=== PATIENT | male | born 1950 | race Caucasian/White ===

== ENCOUNTER → 2019-04-12 | Outpatient (CLI) | payer MEDICARE, OTHER, BC ==
[~2019-04-12] MED LIST: ATEN25TA PO; ATOR40TA59 PO; DOCU-109 PO; HYDR-2145 PO; HYDR-2769 PO; HYDR-3164 PO; IOHEXOL 180 MG/ML 10 ML VIAL. IT ONE; LIDOCAINE 1% Multi-Dose 20 ML VIAL. ID ONE; METH-38 PO; NAPR220T70 PO; OMEG1CAP38 PO; OMEP20TA63 PO; SILD20TA2 PO; TAMS0.4C97 PO
--- NOTE | 2019-04-12 15:38 | KCIC ---
CT lumbar spine exam History: Lumbar radiculopathy, left leg pain for 5 months Technique: CT imaging was performed of the lumbar spine after injection for lumbar myelogram. Multiplanar reconstruction images are submitted. Exposure: One or more of the following individualized dose reduction techniques were utilized for this examination: 1. Automated exposure control 2. Adjustment of the mA and/or kV according to patient size 3. Use of iterative reconstruction technique. Comparison: None Findings: There is mild levoscoliosis centered near L4. Lumbar vertebral body stature is maintained. There is very minimal posterior subluxation L2 relative to L3, very minimal grade 1 anterior spondylolisthesis at L4-5. There is mild degenerative disease greatest at L2-3 and L5-S1. Conus terminates at at the inferior aspect of L1. There is atherosclerotic calcification of the abdominal aorta. T12-L1: There is oqiz-br-oepcqmmc facet degenerative change. Spinal canal and neural foramina are adequate. L1-L2: There is mild buckling of the ligamentum flavum and facet hypertrophic change. Spinal canal and neural foramina are adequate. L2-L3: There is moderate facet degenerative change. There is minimal buckling of the ligamentum flavum. There is minimal disc osteophyte complex superimposed on the posteriorly subluxed L2 vertebral body margin. There is mild indentation upon the ventral thecal sac without significant spinal stenosis. Neural foramina are overall adequate. Disc osteophyte complex is near the extraforaminal left L2 nerve root without significant displacement. L3-L4: There is xati-ob-gxyodpcu facet hypertrophic change. There is minimal buckling of the ligamentum flavum. There is minimal disc osteophyte complex eccentric to the left extraforaminal region, near the extraforaminal left L3 nerve root without significant displacement. Neural foramina are overall adequate. Spinal canal is overall adequate. L4-L5: There is moderate to severe facet degenerative change greater on the right. There is moderate to severe buckling of the ligamentum flavum greater on the right. There is prominence of posterior epidural fat centrally. There is posterior bulge. Combination of findings results in moderate spinal stenosis with somewhat limited preserved subarachnoid space. There is indentation upon the posterior aspect of the thecal sac centrally by epidural lipomatosis. There is lateral recess stenosis bilaterally with degree of contact of the descending L5 nerve roots greater on the left. There is moderate fairly narrowing of the left neural foramen by disc osteophyte complex and facet with limited preserved perineural fat surrounding the exiting left L4 nerve root, disc osteophyte complex also near the extraforaminal left L4 nerve root without displacement. There is mild posterior narrowing of the right neural foramen. L5-S1: There is fairly severe facet degenerative change greater on the left. Spinal canal is adequate. There is negligible bulge. There is no displacement of the descending S1 nerve roots. Facet degenerative change results in mild narrowing of the left neural foramen from posteriorly, right neural foramen adequate. Impression: 1. There is overall moderate spinal stenosis with lateral recess stenosis bilaterally at L4-5, limited preserved subarachnoid space. Stenosis is primarily from facet hypertrophic change and buckling of the ligamentum flavum, also posterior attenuation of the thecal sac centrally by epidural lipomatosis and minimal bulge anteriorly. There is very mild grade 1 anterior spondylolisthesis at L4-5. 2. There is mild degenerative disc disease greatest at L2-3 and L5-S1. 3. There is minimal posterior subluxation L2 relative to L3. There is multilevel facet degenerative change. There is mild lumbar levoscoliosis. 4. There is neural foramina compromise as stated, most notable on the left at L4-5. There are disc osteophyte complexes near the extraforaminal left nerve roots at L2-3, L3-4, L4-5 as described without significant displacement. There is also mild narrowing of the left L5-S1 and right L4-5 neural foramina Electronically signed by: Pedro Blanchard MD (04/12/2019 3:35 PM) [facility]1
--- NOTE | 2019-04-12 15:40 | KCIC ---
Lumbar Myelogram History: Lumbar radiculopathy, left leg pain for 5 months Technique: Patient was informed of the risks of the procedure to include pain, infection, bleeding, seizures, nerve root injury, and allergic reaction to the contrast. All questions were answered. Patient signed a written consent form for a lumbar myelogram. The patient was placed in a prone oblique position on the fluoroscopy table. External site of the lower back was prepped and draped in the usual sterile fashion. Betadine was utilized for cleansing solution. 1% lidocaine was utilized for local anesthesia at the anticipated site of puncture initially on the left at L2-3 interlaminar space. A 19-gauge guiding needle was advanced into the soft tissues. Through the guiding needle, a 25 gauge Arnold needle was advanced although no successful return of cerebral spinal fluid. Additional local anesthesia was then administered on the right at the L3-4 interlaminar space. A 19-gauge guiding needle was advanced into the soft tissues. Through the guiding needle, a 25 gauge Arnold needle was advanced until return of cerebrospinal fluid. Approximately 15 cc of Omnipaque 180 were then injected during fluoroscopic visualization. The needles were removed. Fluoroscopic spot images including standing images with flexion and extension were acquired of the lumbar spine. The patient was then transferred to the CT department for CT examination of the lumbar spine. There were no immediate complications. Fluoroscopy time: 1 min 58 sec, 25 images Findings: There are extradural defects in the lateral recesses bilaterally at L4-5. There is minimal anterior extradural defect at L4-5. Combination of findings results in overall moderate attenuation of the thecal sac. There is multilevel facet degenerative change greater inferiorly of the lumbar spine. There is minimal posterior subluxation L2 relative to L3, somewhat accentuated with flexion and extension. There is negligible posterior subluxation L4 relative to L5 and L3 relative to L4 with extension, minimal grade 1 anterior spondylolisthesis at L4-5 neutral position. There is mild degenerative disc disease L2-3. There is spondylosis greatest L2-3 and L4-5. Impression: 1. There is mild abnormal alignment as stated, most notable minimal posterior subluxation L2 relative to L3. There is mild grade 1 anterior spondylolisthesis at L4-5 in neutral position and minimal posterior subluxation with extension. There are lateral extradural defects bilaterally and also anterior extradural defect at L4-5. There is mild degenerative disc disease greatest at L2-3. Electronically signed by: Pedro Blanchard MD (04/12/2019 3:37 PM) [facility]-KCIC1
== END | disposition home or self-care (01) ==
LOC: KCIC 12:49
PROVIDERS: ATTEND Neurological Surgery
DX: M43.16 Spondylolisthesis, lumbar region (principal); M51.17 Intervertebral disc disorders with radiculopathy, lumbosacral region; M47.25 Other spondylosis with radiculopathy, thoracolumbar region; M48.07 Spinal stenosis, lumbosacral region; I70.8 Atherosclerosis of other arteries; M25.78 Osteophyte, vertebrae; I10 Essential (primary) hypertension
CPT/HCPCS: 72132; 72265; Q9965

== ENCOUNTER → 2019-05-17 | Outpatient (CLI) | payer MEDICARE, OTHER, BC ==
[~2019-05-17] MED LIST changes: -HYDR-2769 PO; -IOHEXOL 180 MG/ML 10 ML VIAL. IT ONE; -LIDOCAINE 1% Multi-Dose 20 ML VIAL. ID ONE; -TAMS0.4C97 PO
[2019-05-17 09:47] LABS: BASO # 0.1 x10^3/uL (0.0-0.2); BASO % 1 % (0-3); EOS # 0.2 x10^3/uL (0.0-0.7); EOS % 4 % (0-3); HEMATOCRIT 44.9 % (39.0-53.0); HEMOGLOBIN 15.4 g/dL (13.0-17.5); LYMPH # 1.9 x10^3/uL (1.0-4.8); LYMPH % 39 % (24-48); MEAN CORPUSCULAR HEMOGLOBIN 32 pg (25-35); MEAN CORPUSCULAR HGB CONC 34 g/dL (31-37); MEAN CORPUSCULAR VOLUME 93 fL (79-100); MONO # 0.5 x10^3/uL (0.0-1.1); MONO % 10 % (0-9); NEUT # 2.2 x10^3/uL (1.8-7.7); NEUT % 46 % (31-73); PLATELET COUNT 170 x10^3/uL (140-400); RED BLOOD COUNT 4.81 x10^6/uL (4.30-5.70); RED CELL DISTRIBUTION WIDTH 13.8 % (11.5-14.5); WHITE BLOOD COUNT 4.9 x10^3/uL (4.0-11.0)
[2019-05-17 10:30] LABS: ALBUMIN 3.9 g/dL (3.4-5.0); ALBUMIN/GLOBULIN RATIO 1.2 (1.0-1.7); CALCIUM 9.2 mg/dL (8.5-10.1); CREATININE 1.1 mg/dL (0.7-1.3); GFR 66.2; POTASSIUM 3.7 mmol/L (3.5-5.1); TOTAL BILIRUBIN 0.9 mg/dL (0.2-1.0); TOTAL PROTEIN 7.1 g/dL (6.4-8.2)
[2019-05-17 10:40] LABS: FREE T4 0.94 ng/dL (0.76-1.46); THYROID STIM HORMONE (TSH) 2.167 uIU/mL (0.358-3.74)
[2019-05-19 12:10] LABS: FREE PSA/PSA RATIO 35.4 % (.); PSA FREE 0.85 ng/mL; PSA TOTAL 2.4 ng/mL (0.0-4.0)
== END | disposition home or self-care (01) ==
LOC: LAB 09:14
PROVIDERS: ATTEND Family Medicine
DX: E78.00 Pure hypercholesterolemia, unspecified (principal); E78.2 Mixed hyperlipidemia; E87.6 Hypokalemia; I10 Essential (primary) hypertension; Z12.5 Encounter for screening for malignant neoplasm of prostate
CPT/HCPCS: 36415; 80053; 80061; 84153; 84154; 84439; 84443; 85025

== ENCOUNTER → 2019-05-17 | Outpatient (CLI) | payer MEDICARE, OTHER, BC ==
--- NOTE | 2019-05-17 15:28 | EKG ---
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
== END | disposition home or self-care (01) ==
LOC: SURGPAT 09:07
PROVIDERS: ATTEND Neurological Surgery
DX: Z01.818 Encounter for other preprocedural examination (principal); M48.062 Spinal stenosis, lumbar region with neurogenic claudication; M54.16 Radiculopathy, lumbar region
CPT/HCPCS: 36415; 87641; 93005

== ENCOUNTER 2019-05-24 06:48 | Day surgery (SDC) | payer MEDICARE, OTHER, BC ==
--- NOTE | 2019-05-21 14:48 | PREOP HP ---
DATE OF SERVICE: 05/24/2019 HISTORY OF PRESENT ILLNESS: The patient is a pleasant 68-year-old who has difficulty with low back pain and pain which radiates into his left buttock, posterior thigh and into his left foot. The problem started on 10/19/2018. He rates his pain currently as an 8/10. The pain is constant. Rest is no significant benefit to him. PAST MEDICAL HISTORY: Hypertension. PAST SURGICAL HISTORY: 1. T and A. 2. Left shoulder. FAMILY HISTORY: Hypertension. SOCIAL HISTORY: Retired. . Smoked more than 10 years ago. Drinks alcohol 1-2 times per week. ALLERGIES: No known drug allergies. CURRENT MEDICATIONS: 1. Diclofenac. 2. Atorvastatin. 3. Atenolol. 4. Hydrochlorothiazide. 5. [place] 3. 6. Sildenafil. REVIEW OF SYSTEMS: A 12-point review of systems was obtained and is noncontributory except for that mentioned above. PHYSICAL EXAMINATION: NEUROSURGERY EXAMINATION: GENERAL APPEARANCE: Alert, pleasant, in no acute distress. HEAD: Normocephalic and atraumatic. SKIN: Warm and dry. MUSCULOSKELETAL: Lumbar paraspinal muscle bulk is normal, restricted range of motion of the lumbar spine, mild to moderate tenderness of the lower lumbar spine with palpation, normal range of motion of the lower extremities bilaterally. EXTREMITIES: No clubbing, cyanosis or edema. NEUROLOGIC: Alert and oriented x 3. Normal recent and remote memory. Strength 5/5 in bilateral lower extremities. Sensory is intact to light touch in lower extremities bilaterally. Reflexes are present and symmetric in bilateral lower extremities. Negative straight leg raising on the right, positive straight leg raising on the left. IMAGING: I reviewed a lumbar myelogram and post-myelogram CT scan. On that study, I do not see significant motion on lumbar flexion and extension x-rays. There is a mild grade 1 anterolisthesis at L4-L5. There is a moderate central canal stenosis at L4-L5, which is combined with buckling of the ligamentum flavum and epidural lipomatosis, results in lateral recess stenosis with contact of a descending L5 nerve root, greater on the left. ASSESSMENT/ PLAN: I believe the problems at L4-L5 are responsible for his lumbar radicular symptoms. The problem has been present and is moderately severe for the last 5 months. My recommendation at this point is that he consider outpatient lumbar microsurgery at this level to see if this one helps him. I discussed with him surgery and the risks. He understands. He would like to proceed. We will make the arrangements. ENOC SANCHEZ MD DR: ROD/dunia JOB#: [id number] / [id number] JANICE
[~2019-05-24] VITALS: Ht 182.9 cm; Wt 104.3 kg
[~2019-05-24 06:48] MED LIST changes: +BACITRACIN 50,000 UNIT in IV NORMAL SALINE 1000ML BAG 1,000 ML IRR ONE; +BUPIVACAINE-EPI 0.5%-1:200000 MPF 30 ML VIAL. INJ ONE; -DOCU-109 PO; -HYDR-3164 PO; -METH-38 PO
[2019-05-24] MEDS ORDERED: fentaNYL PF VIAL 100 MCG/2 ML VIAL IV PRN ×2 (07:00)
[2019-05-24] MEDS ORDERED: MORPHINE SULFATE 2 MG/ML VIAL. IV PRN (07:00)
[2019-05-24] MEDS ORDERED: ONDANSETRON PF 4 MG/2 ML VIAL. IV PRN (07:00)
[2019-05-24] MEDS ORDERED: PROCHLORPERAZINE 10 MG/2 ML VIAL. IV PRN (07:00)
[2019-05-24] MEDS ORDERED: LIDOCAINE 1% PF 2 ML VIAL. ID PRN (07:00)
[2019-05-24] MEDS ORDERED: HYDROmorphone 2 MG/ML VIAL IV PRN (07:00)
[2019-05-24] MEDS ORDERED: IV RINGERS,LACTATED 1000ML 1,000 ML IV SCH (07:00)
[2019-05-24] MEDS ORDERED: REMIFENTANIL 2 MG VIAL. IV ONE (07:06)
[2019-05-24] MEDS ORDERED: LIDOCAINE 2% PF 5 ML VIAL. ONE (07:06)
[2019-05-24] MEDS ORDERED: PROPOFOL 20 ML IV ONE (07:06)
[2019-05-24] MEDS ORDERED: PHENYLEPHRINE 10 MG/ML VIAL. ONE ×2 (07:06→07:07)
[2019-05-24] MEDS ORDERED: PROPOFOL 50 ML IV ONE ×2 (07:06→10:09)
[2019-05-24] MEDS ORDERED: ROCURONIUM 50 MG/5 ML VIAL. ONE (07:06)
[2019-05-24] MEDS ORDERED: DEXAMETHASONE SOD PHOS 20 MG/5 ML VIAL. ONE (07:06)
[2019-05-24] MEDS ORDERED: ONDANSETRON PF 4 MG/2 ML VIAL. ONE (07:06)
[2019-05-24] MEDS ORDERED: 0.9 % SODIUM CHLORIDE 20 ML VIAL. IJ ONE (07:07)
[2019-05-24] MEDS ORDERED: MINERAL OIL/PETROLATUM,WHITE OPHTH OINT 3.5GM TUBE. ONE ×2 (07:07→08:08)
[2019-05-24] MEDS ORDERED: GELATIN SPONGE SIZE 100. ONE (07:13)
[2019-05-24] MEDS ORDERED: THROMBIN TOPICAL 20,000 UNIT SPRAY.SYRN KIT TP ONE (07:14)
[2019-05-24] MEDS ORDERED: KETOROLAC 60 MG/2 ML VIAL. ONE (07:14)
[2019-05-24] MEDS ORDERED: DESFLURANE > 120 MINUTES IH ONE (07:21)
[2019-05-24] MEDS ORDERED: SUCCINYLCHOLINE 200 MG/10 ML VIAL. ONE (07:44)
[2019-05-24] MEDS ORDERED: ceFAZolin 2GM PREMIX 2 GM/50 ML BAG IV ONE (08:00)
[2019-05-24] MEDS ORDERED: fentaNYL PF VIAL 100 MCG/2 ML VIAL ONE (08:17)
[2019-05-24] MEDS ORDERED: DOCU-109 PO (10:50)
[2019-05-24] MEDS ORDERED: HYDR-3164 PO (10:50)
[2019-05-24] MEDS ORDERED: METH-38 PO (10:50)
--- NOTE | 2019-05-24 10:53 | DISCH ---
DISCHARGE INSTRUCTIONS Condition on Discharge Condition on Discharge: Stable Activity After Discharge Activity Instructions for Disc: Activity as tolerated, Avoid exertion Bathing Instructions: Shower-keep dressing dry Lifting Instructions after Dis: No heavy lifting, No pulling or pushing, Do not lift >10 pounds Diet after Discharge Additional Diet Restrictions: resume home diet Wound Incision Care Wound/Incision Care: Ice to area for comfort Other wound/incision instructi: may remove dressing in 48 hours if dry then may shower, no soaking Contacting the DRKatharina after DC Call your doctor for: Concerns you may have Follow-Up Follow up with: Dr. Sanchez's nurse in 2 weeks [phone] ENOC SANCHEZ MD May 24, 2019 10:52
--- NOTE | 2019-05-24 11:07 | OP ---
DATE OF SURGERY: 05/24/2019 PREOPERATIVE DIAGNOSES: Lumbar spinal stenosis/epidural lipomatosis at L4-L5 with left lumbar radiculopathy. POSTOPERATIVE DIAGNOSES: Lumbar spinal stenosis/epidural lipomatosis at L4-L5 with left lumbar radiculopathy. OPERATION PERFORMED: Hemilaminotomy with microdecompression of dura and nerve root and removal of epidural lipomatosis at L4-L5. The operation was done with EMG monitoring, SSEP monitoring, fluoroscopy, microscopic dissection. SURGEON: Saji Sanchez M.D. STORAGE ADMINISTRATOR: EMMANUEL Talbert assisted with the surgery. She assisted with the exposure, the microdecompression, as well as the closure. OPERATIVE INDICATIONS: The patient is a pleasant 69-year-old who developed intractable back and left leg pain, which failed conservative measures. He had above-mentioned findings on imaging studies and I recommended lumbar microdecompressive surgery. I spoke with him about the surgery, the risks, technique and expected postoperative course and he wished to go ahead. DESCRIPTION OF PROCEDURE: Following general endotracheal anesthesia, the patient was positioned prone on the Alli frame. His lumbar region was prepped and draped in standard fashion. RODNEY hose and AV impulse boots were applied for DVT prophylaxis. A microscope was draped. Fluoroscopy was draped and brought into the field. Monitoring was established. Ancef 2 grams was given less than 1 hour prior to initiation of the surgery. Using fluoroscopic guidance, a midline posterior incision was made directly over the L4-L5 interspace, dissected down through skin and subcutaneous tissue, reflected the paraspinal muscles. Paraspinal muscles and placed a Russell microdisc retractor. I brought in the microscope and using high speed air drill, I burred down a generous hemilaminotomy. I grasped ligamentum flavum and peeled this from superior to inferiorly and medial to laterally and performed a generous partial foraminotomy. The dura was markedly compressed and this was relieved by removing the very thick ligamentum flavum and I worked directly to the midline. There was considerable amount of epidural lipomatosis and I reached beneath the midline to the contralateral side and began to tease back and remove this fatty material, which allowed the dura to become further decompressed. I gently retracted the root medially with a micro nerve root retractor. The disc was flat and not significantly bulging as well as firm and no discectomy was warranted. I irrigated copiously with antibiotic solution. I did use bone wax during the operation. I coagulated a couple of large epidural veins and assured myself of perfect hemostasis in the muscle with a bipolar cautery, again through the microscope, and then I closed the wound in layers with absorbable suture after irrigating again. The subcutaneous tissue was closed, the skin was closed with 4-0 subcuticular stitch. The operation went very well and the patient taken to recovery room in excellent condition. I was quite pleased with the surgery. SAJI SANCHEZ MD DR: ROD/dunia JOB#: [id number] / [id number] JANICE
[2019-05-24] MEDS ORDERED: HYDROcodone/APAP 5/325MG 1 TAB TABLET PO ONE (11:15)
[2019-05-24 11:25] VITALS: BP 131/80
--- NOTE | 2019-05-25 16:06 | PATHOLOGY ---
[facility] Accession Number: [id number] . 01 Material submitted: . vertebral column - LUMBAR DECOMPRESSION . 01 Clinical history: . Lumbar stenosis and neurogenic claudication, radiculopathy . 02 Diagnosis: "Lumbar decompression": - Reactive fibrocartilage with associated skeletal muscle. . (MAP:mm; 05/25/2019) [facility] 05/25/2019 1314 Local . 02 Electronically signed: . Jose M Friedman MD, Pathologist NPI- [id number] . 01 Gross description: . Received in formalin labeled "Juan Francisco Norris, lumbar decompression," are several pieces of glistening, fibrous tissue measuring 4.5 x 3.6 x 1.3 cm in aggregate dimensions, containing small fragments of possible bone. The tissue is submitted representatively in cassette A1, following decalcification. (TSD; 05/24/2019) TOB/TOB 05/24/2019 1751 Local . 02 Pathologist provided ICD-10: M99.73, G95.19, M54.16 . 02 CPT . 771587, 983290 Specimen Comment: A courtesy copy of this report has been sent to [phone], [phone] Specimen Comment: [id number] Specimen Comment: Report sent to ,DR AVILA / DR KNOX Performed at: 01 [facility] [address], [place] [id number] MD Rodrigo Garzon MD Phone: [phone] Performed at: 02 [facility] [address], [place] [id number] MD Juan Francisco Montoya MD Phone: [phone]
== END 2019-05-24 12:30 | disposition home or self-care (01) ==
LOC: SURG 06:48
PROVIDERS: ATTEND Neurological Surgery
DX: M54.16 Radiculopathy, lumbar region (principal); M48.061 Spinal stenosis, lumbar region without neurogenic claudication; E88.2 Lipomatosis, not elsewhere classified; I10 Essential (primary) hypertension; E78.00 Pure hypercholesterolemia, unspecified; K21.9 Gastro-esophageal reflux disease without esophagitis; Z98.890 Other specified postprocedural states; Z87.891 Personal history of nicotine dependence; Z72.89 Other problems related to lifestyle
CPT/HCPCS: 63047; 97116; 97162; 97530; J0330; J0696; J1100; J1885; J2001; J2405; J2704; J3010; J3490; J7030; J7120; 76000; 88304; 88311

== ENCOUNTER 2019-05-26 08:53 | Inpatient (IN) | payer MEDICARE, OTHER, BC ==
[~2019-05-26] VITALS: Ht 182.9 cm; Wt 106.7 kg
[~2019-05-26 08:53] MED LIST changes: -BACITRACIN 50,000 UNIT in IV NORMAL SALINE 1000ML BAG 1,000 ML IRR ONE; -BUPIVACAINE-EPI 0.5%-1:200000 MPF 30 ML VIAL. INJ ONE; +DOCU-109 PO; +HYDR-3164 PO; +METH-38 PO
[2019-05-26] MEDS ORDERED: fentaNYL PF VIAL 100 MCG/2 ML VIAL IVP ONE ×2 (09:15→14:00)
--- NOTE | 2019-05-26 09:32 | RAD ---
EXAM: Chest, single view. HISTORY: Syncope. COMPARISON: None. FINDINGS: A frontal view of the chest is obtained. There is suspected lingular and bilateral lower lobe atelectasis or scarring. There is no consolidation, pleural effusion or pneumothorax. The heart is normal in size. IMPRESSION: Suspected lingular and bilateral lower lobe atelectasis or scarring. Electronically signed by: Crissy Cuello MD (05/26/2019 9:29 AM) [place] [id number]
[2019-05-26 09:46] LABS: BASO # 0.2 x10^3/uL (0.0-0.2); BASO % 1 % (0-3); EOS % 0 % (0-3); HEMATOCRIT 41.1 % (39.0-53.0); HEMOGLOBIN 14.4 g/dL (13.0-17.5); LYMPH # 2.3 x10^3/uL (1.0-4.8); LYMPH % 20 % (24-48); MEAN CORPUSCULAR HEMOGLOBIN 33 pg (25-35); MEAN CORPUSCULAR HGB CONC 35 g/dL (31-37); MEAN CORPUSCULAR VOLUME 93 fL (79-100); MONO # 1.2 x10^3/uL (0.0-1.1); MONO % 11 % (0-9); NEUT # 7.8 x10^3/uL (1.8-7.7); NEUT % 67 % (31-73); PLATELET COUNT 183 x10^3/uL (140-400); RED BLOOD COUNT 4.43 x10^6/uL (4.30-5.70); RED CELL DISTRIBUTION WIDTH 14.3 % (11.5-14.5); WHITE BLOOD COUNT 11.5 x10^3/uL (4.0-11.0)
[2019-05-26 10:03] LABS: CREATININE 1.3 mg/dL (0.7-1.3); GFR 54.4; POTASSIUM 3.8 mmol/L (3.5-5.1)
[2019-05-26 10:10] LABS: ALBUMIN 3.5 g/dL (3.4-5.0); MAGNESIUM 1.9 mg/dL (1.8-2.4); TOTAL BILIRUBIN 1.1 mg/dL (0.2-1.0); TOTAL PROTEIN 7.1 g/dL (6.4-8.2)
--- NOTE | 2019-05-26 10:13 | RAD ---
EXAM: Head CT without contrast. HISTORY: Syncope. TECHNIQUE: Computed tomographic images of the head were obtained without contrast. *One or more of the following individualized dose reduction techniques were utilized for this examination: 1. Automated exposure control. 2. Adjustment of the mA and/or kV according to patient size. 3. Use of iterative reconstruction technique. COMPARISON: None. FINDINGS: There is no acute or subacute extra-axial or intraparenchymal hemorrhage. There is no mass effect or midline shift. There is no hydrocephalus. There are areas of decreased attenuation within the cerebral white matter, nonspecific and likely related to chronic small vessel disease. There is cerebral and cerebellar volume loss. There is ethmoid sinus mucosal thickening. There are bilateral hannah bullosa. The orbits are unremarkable. There is minimal fluid within right mastoid air cells. No suspicious calvarial lesion is seen. IMPRESSION: 1. No acute intracranial finding. Note is made that MRI is more sensitive for acute infarction. 2. Nonspecific decreased attenuation within the cerebral white, a finding which can be seen with chronic small vessel disease. 3. Mild cerebral and cerebellar volume loss. Electronically signed by: Crissy Cuello MD (05/26/2019 10:10 AM) [email or web address]
[2019-05-26 10:32] LABS: BILIRUBIN,URINE NEGATIVE (NEG); CLARITY,URINE CLEAR; COLOR,URINE YELLOW; NITRITE,URINE NEGATIVE (NEG); PH,URINE 6.5; PROTEIN,URINE NEGATIVE (NEG-TRACE); UROBILINOGEN,URINE 0.2 mg/dL (0.2 mg/dL)
[2019-05-26 10:39] LABS: HYALINE CASTS, URINE FEW /HPF; SQUAMOUS EPITHELIAL CELL,UR FEW /LPF
[2019-05-26 10:40] LABS: BACTERIA,URINE FEW /HPF (0-FEW)
[2019-05-26 10:42] LABS: RBC,URINE OCC /HPF (0-2)
[2019-05-26] MEDS ORDERED: IV NORMAL SALINE 1000ML BAG 1,000 ML IV ONE ×2 (10:45→15:15)
[2019-05-26] MEDS ORDERED: HYDROmorphone 2 MG/ML VIAL IV ONE (10:45)
--- NOTE | 2019-05-26 10:46 | EKG ---
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
--- NOTE | 2019-05-26 11:07 | PHYS DOC ---
Past Medical History Past Medical History: Hypertension Alcohol Use: Occasionally Drug Use: None Adult General Chief Complaint Chief Complaint: SYNCOPE HPI HPI Patient is a 69 year old male with history of lumbar disc surgery 3 days ago who presents with complaining of passing out. Patient states he feels a coffee for himself this morning without problem and then laid down on day couch and woke up on the ground of his room with an known time of loss of consciousness. Patient denies chest pain, focal neuro deficit, nausea and vomiting before or after syncope and complaining of increasing lower back pain after his syncope and rated his pain 8/10. Patient states he currently taking hydrocodone for his pain without problem. Review of Systems Review of Systems Constitutional: Denies fever or chills [] Eyes: Denies change in visual acuity, redness, or eye pain [] HENT: Denies nasal congestion or sore throat [] Respiratory: Denies cough or shortness of breath [] Cardiovascular: No additional information not addressed in HPI [] GI: Denies abdominal pain, nausea, vomiting, bloody stools or diarrhea [] : Denies dysuria or hematuria [] Musculoskeletal: Denies joint pain, reports back pain [] Integument: Denies rash or skin lesions [] Neurologic: Denies headache, focal weakness or sensory changes [] Endocrine: Denies polyuria or polydipsia [] All other systems were reviewed and found to be within normal limits, except as documented in this note. Current Medications Current Medications Current Medications Medications (Trade) Dose Ordered Sig/Manohar Start Time Stop Time Status Last Admin Dose Admin Fentanyl Citrate (Fentanyl 2ml Vial) 50 mcg 1X ONCE 05/26/19 09:15 05/26/19 09:23 DC 05/26/19 09:42 50 MCG Hydromorphone HCl (Dilaudid) 1 mg 1X ONCE 05/26/19 10:45 05/26/19 10:46 DC 05/26/19 10:48 1 MG Sodium Chloride 1,000 ml @ 1,000 mls/hr 1X ONCE 05/26/19 10:45 05/26/19 11:44 DC 05/26/19 10:49 1,000 MLS/HR Allergies Allergies Allergies Coded Allergies Type Severity Reaction Last Updated Verified No Known Drug Allergies 04/12/19 No Physical Exam Physical Exam Constitutional: Well developed, well nourished, mild distress, non-toxic appearance. [] HENT: Normocephalic, atraumatic. Eyes: PERRLA, EOMI, conjunctiva normal, no discharge. [] Neck: Normal range of motion, no tenderness, supple, no stridor. [] Cardiovascular:Heart rate regular rhythm, no murmur [] Lungs & Thorax: Bilateral breath sounds clear to auscultation [] Abdomen: Bowel sounds normal, soft, no tenderness, no masses, no pulsatile masses. [] Skin: Warm, dry, no erythema, no rash. [] Back: Surgical dressing on lumbar area without sign of infection, no CVA tenderness. [] Extremities: No tenderness, no cyanosis, no clubbing, ROM intact, no edema. [] Neurologic: Alert and oriented X 3, no focal deficits noted. [] Psychologic: Affect normal, judgement normal, mood normal. [] Current Patient Data Vital Signs Vital Signs Date Time Temp Pulse Resp B/P (MAP) Pulse Ox O2 Delivery O2 Flow Rate FiO2 05/26/19 10:48 17 96 Room Air 05/26/19 09:15 98.0 86 147/81 (103) 98.0 Lab Values Laboratory Tests Test 05/26/19 09:40 05/26/19 10:20 White Blood Count 11.5 x10^3/uL (4.0-11.0) H Red Blood Count 4.43 x10^6/uL (4.30-5.70) Hemoglobin 14.4 g/dL (13.0-17.5) Hematocrit 41.1 % (39.0-53.0) Mean Corpuscular Volume 93 fL (79-100) Mean Corpuscular Hemoglobin 33 pg (25-35) Mean Corpuscular Hemoglobin Concent 35 g/dL (31-37) Red Cell Distribution Width 14.3 % (11.5-14.5) Platelet Count 183 x10^3/uL (140-400) Neutrophils (%) (Auto) 67 % (31-73) Lymphocytes (%) (Auto) 20 % (24-48) L Monocytes (%) (Auto) 11 % (0-9) H Eosinophils (%) (Auto) 0 % (0-3) Basophils (%) (Auto) 1 % (0-3) Neutrophils # (Auto) 7.8 x10^3/uL (1.8-7.7) H Lymphocytes # (Auto) 2.3 x10^3/uL (1.0-4.8) Monocytes # (Auto) 1.2 x10^3/uL (0.0-1.1) H Eosinophils # (Auto) 0.0 x10^3/uL (0.0-0.7) Basophils # (Auto) 0.2 x10^3/uL (0.0-0.2) Sodium Level 141 mmol/L (136-145) Potassium Level 3.8 mmol/L (3.5-5.1) Chloride Level 101 mmol/L (98-107) Carbon Dioxide Level 29 mmol/L (21-32) Anion Gap 11 (6-14) Blood Urea Nitrogen 16 mg/dL (8-26) Creatinine 1.3 mg/dL (0.7-1.3) Estimated GFR (Cockcroft-Gault) 54.4 BUN/Creatinine Ratio 12 (6-20) Glucose Level 138 mg/dL (70-99) H Calcium Level 9.0 mg/dL (8.5-10.1) Magnesium Level 1.9 mg/dL (1.8-2.4) Total Bilirubin 1.1 mg/dL (0.2-1.0) H Aspartate Amino Transferase (AST) 23 U/L (15-37) Alanine Aminotransferase (ALT) 19 U/L (16-63) Alkaline Phosphatase 63 U/L (46-116) Creatine Kinase 252 U/L (39-308) Troponin I Quantitative < 0.017 ng/mL (0.000-0.055) Total Protein 7.1 g/dL (6.4-8.2) Albumin 3.5 g/dL (3.4-5.0) Albumin/Globulin Ratio 1.0 (1.0-1.7) Thyroid Stimulating Hormone (TSH) 2.926 uIU/mL (0.358-3.74) Urine Collection Type Unknown Urine Color Yellow Urine Clarity Clear Urine pH 6.5 Urine Specific [place] 1.025 Urine Protein Negative mg/dL (NEG-TRACE) Urine Glucose (UA) Negative mg/dL (NEG) Urine Ketones (Stick) Negative mg/dL (NEG) Urine Blood Negative (NEG) Urine Nitrite Negative (NEG) Urine Bilirubin Negative (NEG) Urine Urobilinogen Dipstick 0.2 mg/dL (0.2 mg/dL) Urine Leukocyte Esterase Negative (NEG) Urine RBC Occ /HPF (0-2) Urine WBC 1-4 /HPF (0-4) Urine Squamous Epithelial Cells Few /LPF Urine Bacteria Few /HPF (0-FEW) Urine Hyaline Casts Few /HPF Urine Mucus Mod /LPF Laboratory Tests 05/26/19 09:40 Laboratory Tests 05/26/19 09:40 EKG EKG EKG interpreted by me. EKG at 0909 showed normal sinus rhythm at rate of 87, poor R-wave progress in anteroseptal leads, no acute ST and T-wave elevation Radiology/Procedures Radiology/Procedures [][place] [address] IMAGING REPORT Signed PATIENT: MCKENZIE BARTH ACCOUNT: [id number] : 1950 LOCATION: ER AGE: 69 SEX: M EXAM STATUS: REG ER ORD. PHYSICIAN: KATHY BELTRAN MD REASON: syncope PROCEDURE: PORTABLE CHEST 1V EXAM: Chest, single view. HISTORY: Syncope. COMPARISON: None. FINDINGS: A frontal view of the chest is obtained. There is suspected lingular and bilateral lower lobe atelectasis or scarring. There is no consolidation, pleural effusion or pneumothorax. The heart is normal in size. IMPRESSION: Suspected lingular and bilateral lower lobe atelectasis or scarring. Electronically signed by: Crissy Singh MD (05/26/2019 9:29 AM) [place] [id number] DICTATED and SIGNED BY: CRISSY SINGH MD DATE: 05/26/[address] [address] IMAGING REPORT Signed PATIENT: MCKENZIE BARTH ACCOUNT: [id number] : 1950 LOCATION: ER AGE: 69 SEX: M EXAM STATUS: REG ER ORD. PHYSICIAN: KATHY BELTRAN MD REASON: syncope THIS AM LOW BACK SURGURY FRIDAY PROCEDURE: CT HEAD WO CONTRAST EXAM: Head CT without contrast. HISTORY: Syncope. TECHNIQUE: Computed tomographic images of the head were obtained without contrast. *One or more of the following individualized dose reduction techniques were utilized for this examination: 1. Automated exposure control. 2. Adjustment of the mA and/or kV according to patient size. 3. Use of iterative reconstruction technique. COMPARISON: None. FINDINGS: There is no acute or subacute extra-axial or intraparenchymal hemorrhage. There is no mass effect or midline shift. There is no hydrocephalus. There are areas of decreased attenuation within the cerebral white matter, nonspecific and likely related to chronic small vessel disease. There is cerebral and cerebellar volume loss. There is ethmoid sinus mucosal thickening. There are bilateral hannah bullosa. The orbits are unremarkable. There is minimal fluid within right mastoid air cells. No suspicious calvarial lesion is seen. IMPRESSION: 1. No acute intracranial finding. Note is made that MRI is more sensitive for acute infarction. 2. Nonspecific decreased attenuation within the cerebral white, a finding which can be seen with chronic small vessel disease. 3. Mild cerebral and cerebellar volume loss. Electronically signed by: Crissy Singh MD (05/26/2019 10:10 AM) [id number] DICTATED and SIGNED BY: CRISSY SINGH MD DATE: 05/26/19 1010 Course & Med Decision Making Course & Med Decision Making Pertinent Labs and Imaging studies reviewed. (See chart for details) Evaluation of patient in ER showed 69-year-old male patient with history of recent back surgery and one episode of syncope today. Patient had unremarkable physical exam without acute neurodeficit and history of syncope. Patient neurosurgeon Dr. Herring was informed at 1102 via his nurse. Patient requiring admission for further evaluation and treatment. Discussed with Dr. Fallon who is in agreement with admission. Discussed findings and plan with patient and family, who acknowledge understanding and agreement. Dragon Disclaimer Dragon Disclaimer This electronic medical record was generated, in whole or in part, using a voice recognition dictation system. Departure Departure Impression: Primary Impression: Syncope Additional Impression: Post-op pain Disposition: 09 ADMITTED INPATIENT Admitting Physician: SUMAYA Condition: IMPROVED Referrals: THEODORE AVILA MD (PCP) Problem Qualifiers Primary Impression: Syncope Syncope type: unspecified Qualified Codes: R55 - Syncope and collapse KOUSHA,KATHY MD May 26, 2019 11:07
[2019-05-26 11:54] VITALS: BP 155/83
--- NOTE | 2019-05-26 12:30 | NUR ---
The patient, MCKENZIE BARTH, 69 y/o, M admitted by RUTH GRIFFIN III, DO, was given written information regarding hospital policies, unit procedures and contact persons. Valuables taken home by emergency contact
[2019-05-26] MEDS ORDERED: ATOR40TA59 PO (12:34)
--- NOTE | 2019-05-26 13:22 | PDOC2 ---
ABI TEE ELECTRICAL INTERN 05/26/19 1321: CARDIAC CONSULT DATE OF CONSULT Date of Consult DATE: 05/26/19 TIME: 13:13 REASON FOR CONSULT Reason for Consult: Syncope with fall REFERRING PHYSICIAN Referring Physician: Vasyl SOURCE Source: Chart review, Patient HISTORY OF PRESENT ILLNESS HISTORY OF PRESENT ILLNESS This is a pleasant 69 yo male admitted for complains of passing out. He had LMD Friday and was doing well post op and actually back pain was well controlled and his LLE pain was gone since surgery. Yesterday he decided to slowly walk to the store and actually ending walking about 200 yards. He tolerated this but in the evening he started having significant low back pain. He was able to go to bed last night and this morning he was trying to prepare some coffee in the kitchen when felt like he was having vertigo with the TV looked like it was spinning. After which he noticed himself looking up on the kitchen table as he was laying on the floor. No apparent fractures. He denied any palpitations, nor any focal neurosymptoms. Denies feeling hot or even feeling lightheaded but he was having significant low back pain at that time. In addition he also just started having abdominal pain, throbbing and thinking this may be related to his lower back. Pain is currently 7-8 in 0-10 pain scale. No n/v/d. Denies any past hx of vertigo, arrhythmia, CAD, VTE and he did tolerate his LMD last Friday. Presently he still having significant low back pain. Denies any past stress test or syncope. PAST MEDICAL HISTORY Cardiovascular: HTN, Hyperlipidemia Pulmonary: No pertinent hx CENTRAL NERVOUS SYSTEM: Other (No pertinent history) GI: GERD, Other (umbilical hernia) Heme/Onc: No pertinent hx Hepatobiliary: No pertinent hx Psych: No pertinent hx Musculoskeletal: low back pain, Osteoarthritis, Other (left shoulder shrapnel) Infectious disease: No pertinent hx ENT: No pertinent hx Renal/: Other (ED) Endocrine: Other (thyroid cysts) Dermatology: No pertinent hx PAST SURGICAL HISTORY Past Surgical History: Arthroscopy (left shoulder), Tonsillectomy, Other (LMD) FAMILY HISTORY Family History: Hypertension SOCIAL HISTORY Smoke: Quit (approx 30 pk yr, quit remotely) ALCOHOL: occassional Drugs: None Lives: Alone CURRENT MEDICATIONS CURRENT MEDICATIONS Current Medications Medications (Trade) Dose Ordered Sig/Manohar Route PRN Reason Start Time Stop Time Status Last Admin Dose Admin Fentanyl Citrate (Fentanyl 2ml Vial) 50 mcg 1X ONCE IVP 05/26/19 09:15 05/26/19 09:23 DC 05/26/19 09:42 Sodium Chloride 1,000 ml @ 1,000 mls/hr 1X ONCE IV 05/26/19 10:45 05/26/19 11:44 DC 05/26/19 10:49 Hydromorphone HCl (Dilaudid) 1 mg 1X ONCE IV 05/26/19 10:45 05/26/19 10:46 DC 05/26/19 10:48 ALLERGIES ALLERGIES: Coded Allergies: No Known Drug Allergies (Unverified , 04/12/19) ROS Review of System 14 point ROS evaluated with pertinent positives noted per HPI PHYSICAL EXAM General: Alert, Oriented X3, Cooperative, No acute distress HEENT: Atraumatic, Mucous membr. moist/pink Lungs: Clear to auscultation, Normal air movement Heart: Regular rate (SR), Normal S1, Normal S2, No murmurs Abdomen: Soft, No tenderness, Other (umbilical hernis, truncal obesity) Extremities: No cyanosis, No edema, Other (2+ bilateral pedal pulses) Skin: No breakdown, No significant lesion, Other (lower back surgical incision intact with telfa) Neuro: Normal speech, Sensation intact Psych/Mental Status: Mental status NL, Mood NL MUSCULOSKELETAL: Osteoarthritic changes both hands VITALS/I&O VITALS/I&O: Vital Signs Date Time Temp Pulse Resp B/P (MAP) Pulse Ox O2 Delivery O2 Flow Rate FiO2 05/26/19 12:36 97 Room Air 05/26/19 11:54 98.6 89 18 155/83 (107) 98.6 LABS Lab: Laboratory Tests Test 05/26/19 09:40 05/26/19 10:20 White Blood Count 11.5 x10^3/uL (4.0-11.0) H Red Blood Count 4.43 x10^6/uL (4.30-5.70) Hemoglobin 14.4 g/dL (13.0-17.5) Hematocrit 41.1 % (39.0-53.0) Mean Corpuscular Volume 93 fL (79-100) Mean Corpuscular Hemoglobin 33 pg (25-35) Mean Corpuscular Hemoglobin Concent 35 g/dL (31-37) Red Cell Distribution Width 14.3 % (11.5-14.5) Platelet Count 183 x10^3/uL (140-400) Neutrophils (%) (Auto) 67 % (31-73) Lymphocytes (%) (Auto) 20 % (24-48) L Monocytes (%) (Auto) 11 % (0-9) H Eosinophils (%) (Auto) 0 % (0-3) Basophils (%) (Auto) 1 % (0-3) Neutrophils # (Auto) 7.8 x10^3/uL (1.8-7.7) H Lymphocytes # (Auto) 2.3 x10^3/uL (1.0-4.8) Monocytes # (Auto) 1.2 x10^3/uL (0.0-1.1) H Eosinophils # (Auto) 0.0 x10^3/uL (0.0-0.7) Basophils # (Auto) 0.2 x10^3/uL (0.0-0.2) Sodium Level 141 mmol/L (136-145) Potassium Level 3.8 mmol/L (3.5-5.1) Chloride Level 101 mmol/L (98-107) Carbon Dioxide Level 29 mmol/L (21-32) Anion Gap 11 (6-14) Blood Urea Nitrogen 16 mg/dL (8-26) Creatinine 1.3 mg/dL (0.7-1.3) Estimated GFR (Cockcroft-Gault) 54.4 BUN/Creatinine Ratio 12 (6-20) Glucose Level 138 mg/dL (70-99) H Calcium Level 9.0 mg/dL (8.5-10.1) Magnesium Level 1.9 mg/dL (1.8-2.4) Total Bilirubin 1.1 mg/dL (0.2-1.0) H Aspartate Amino Transferase (AST) 23 U/L (15-37) Alanine Aminotransferase (ALT) 19 U/L (16-63) Alkaline Phosphatase 63 U/L (46-116) Creatine Kinase 252 U/L (39-308) Troponin I Quantitative < 0.017 ng/mL (0.000-0.055) Total Protein 7.1 g/dL (6.4-8.2) Albumin 3.5 g/dL (3.4-5.0) Albumin/Globulin Ratio 1.0 (1.0-1.7) Urine Collection Type Unknown Urine Color Yellow Urine Clarity Clear Urine pH 6.5 Urine Specific [place] 1.025 Urine Protein Negative mg/dL (NEG-TRACE) Urine Glucose (UA) Negative mg/dL (NEG) Urine Ketones (Stick) Negative mg/dL (NEG) Urine Blood Negative (NEG) Urine Nitrite Negative (NEG) Urine Bilirubin Negative (NEG) Urine Urobilinogen Dipstick 0.2 mg/dL (0.2 mg/dL) Urine Leukocyte Esterase Negative (NEG) Urine RBC Occ /HPF (0-2) Urine WBC 1-4 /HPF (0-4) Urine Squamous Epithelial Cells Few /LPF Urine Bacteria Few /HPF (0-FEW) Urine Hyaline Casts Few /HPF Urine Mucus Mod /LPF Laboratory Tests 05/26/19 09:40 Laboratory Tests 05/26/19 09:40 ASSESSMENT/PLAN ASSESSMENT/PLAN 1. Syncope with fall: no obvious injury. Suspect vasovagal from severe pain. No arrhythmias so far. Negative for CSH 2. Vertigo: occurred prior to syncope 3. Lower back pain/abd pain: S/P LMD POD#2 4. HTN: controlled 5. HLP 6. Hx of Left shoulder shrapnel: hence no MRI 7. Lumbar radiculopathy: Absent since surgery 8. 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 Recommendations 1. Orthostasis readings. TTE and check TSH 2. Monitor rhythm. Fentanyl x1. Analgesic control per PCP 3. CT abd and pelvis and rule out any associated aneurysm/dissection. Lumbar CT if able to lay flat post analgesic. LIV LANZA MD 05/26/19 1627: CARDIAC CONSULT ASSESSMENT/PLAN ASSESSMENT/PLAN Patient seen and examined. Agree with AUTO DRIVER's assessment and plan. Syncope appears to be vasovagal. Telemetry did not show any significant arrhythmia so far. Check orthostatics. Check 2-D echocardiogram to assess LV function and rule out structural abnormalities. Plan for outpatient event monitor. Thank you for your consultation. ABI TEE APRN May 26, 2019 13:21 LIV LANZA MD May 26, 2019 16:27
[2019-05-26] MEDS ORDERED: fentaNYL PF VIAL 100 MCG/2 ML VIAL IM ONE (13:45)
[2019-05-26] MEDS: HYDROcodone/APAP 5/325MG 1 TAB TABLET PO PRN (13:59)
[2019-05-26 14:17] VITALS: BP 139/64
--- NOTE | 2019-05-26 14:31 | PDOC1 ---
History and Physical Date of Admission: Date of Admission DATE: 05/26/19 TIME: 14:29 Chief Complaint: Problems: (1) Syncope (2) Post-op pain (3) Spinal stenosis, lumbar region with neurogenic claudication Chief Complain: Syncope Recent lumbar surgery History of Present Illness: HPI: This is an elderly male who had lumbar surgery Alexis Today he had a syncopal episode I discussed the case with ER physician and the nurse Patient is being admitted we'll consult neurosurgery , cardiology and monitor him on the telemetry floor Past Medical/Surgical History: PMH/PSH: Recent lumbar surgery Allergies: Allergies: Coded Allergies: No Known Drug Allergies (Unverified , 04/12/19) Family History: Family History: Diabetes Social History: Social Hisoty: He does not drink smoke or take drugs Current Medications: Current Medications Current Medications Fentanyl Citrate (Fentanyl 2ml Vial) 50 mcg 1X ONCE IVP Last administered on 05/26/19at 09:42; Start 05/26/19 at 09:15; Stop 05/26/19 at 09:23; Status DC Sodium Chloride 1,000 ml @ 1,000 mls/hr 1X ONCE IV Last administered on 05/26/19at 10:49; Start 05/26/19 at 10:45; Stop 05/26/19 at 11:44; Status DC Hydromorphone HCl (Dilaudid) 1 mg 1X ONCE IV Last administered on 05/26/19at 10:48; Start 05/26/19 at 10:45; Stop 05/26/19 at 10:46; Status DC Acetaminophen/ Hydrocodone Bitart (Lortab 5/325) 1 tab PRN Q4HRS PRN PO PAIN Last administered on 05/26/19at 13:59; Start 05/26/19 at 12:30 Fentanyl Citrate (Fentanyl 2ml Vial) 50 mcg 1X ONCE IM ; Start 05/26/19 at 13:45; Stop 05/26/19 at 13:48; Status DC Fentanyl Citrate (Fentanyl 2ml Vial) 50 mcg 1X ONCE IVP Last administered on 05/26/19at 14:00; Start 05/26/19 at 14:00; Stop 05/26/19 at 14:01; Status DC Active Scripts Active Robaxin-750 (Methocarbamol) 750 Mg Tablet 750 Mg PO TID PRN PRN Colace (Docusate Sodium) 100 Mg Capsule 100 Mg PO BID [place] 5-325 Tablet (Acetaminophen/Hydrocodone Bitart) 1 Each Tablet 1-2 Tab PO Q4-6HRS PRN Reported Atorvastatin Calcium 40 Mg Tablet 1 Tab PO QHS Aleve (Naproxen Sodium) 220 Mg Tablet 220 Mg PO BID Prilosec Otc (Omeprazole Magnesium) 20 Mg Tablet. 20 Mg PO DAILY Atenolol 25 Mg Tablet 25 Mg PO DAILY Sildenafil (Sildenafil Citrate) 20 Mg Tablet 20 Mg PO TID [place] 3 Fish Oil Softgel ([place]-3 Fatty Acids/Fish Oil) 1 Each Capsule.dr 1 Each PO DAILY Hydrochlorothiazide Tablet (Hydrochlorothiazide) 25 Mg Tablet 25 Mg PO DAILY ROS: Review of Systems Review of System REVIEW OF SYSTEMS: GENERAL: Denies weakness SKIN: No bruising, hair changes or rashes. EYES: No blurred, double or loss of vision. NOSE AND THROAT: No history of nosebleeds, hoarseness or sore throat. HEART: No history of palpitations, chest pain or shortness of breath on exertion. LUNGS: Denies cough, hemoptysis, wheezing or shortness of breath. GASTROINTESTINAL: Denies changes in appetite, nausea, vomiting, diarrhea or constipation. GENITOURINARY: No history of frequency, urgency, hesitancy or nocturia. NEUROLOGIC: Denies history of numbness, tingling, tremor or weakness. PSYCHIATRIC: No history of panic, anxiety or depression. ENDOCRINE: No history of heat or cold intolerance, polyuria or polydipsia. EXTREMITIES: Denies muscle weakness, joint pain, pain on walking or stiffness. Physical Exam: Vital Signs: Vital Signs Date Time Temp Pulse Resp B/P (MAP) Pulse Ox O2 Delivery O2 Flow Rate FiO2 05/26/19 14:17 98.0 95 18 139/64 (89) 94 Room Air 98.0 Physcial Exam: GEN.: No apparent distress. Alert and oriented. HEENT: Head is normocephalic, atraumatic NECK: Supple, no JVD LUNGS: Clear to auscultation without rhonchi or wheezing HEART: RRR, S1, S2 present. Peripheral pulses intact ABDOMEN: Soft, nontender. Positive bowel sounds no organomegaly EXTREMITIES: Without any cyanosis, clubbing, or edema. Pedal pulses intact NEUROLOGIC: Normal speech, normal tone. A&O x 3 PSYCHIATRIC: Normal affect, normal mood. Stable SKIN: No ulcerations or rashes VASCULAR: Good capillary refill Labs: Labs: Laboratory Tests Test 05/26/19 09:40 05/26/19 10:20 White Blood Count 11.5 x10^3/uL (4.0-11.0) Red Blood Count 4.43 x10^6/uL (4.30-5.70) Hemoglobin 14.4 g/dL (13.0-17.5) Hematocrit 41.1 % (39.0-53.0) Mean Corpuscular Volume 93 fL (79-100) Mean Corpuscular Hemoglobin 33 pg (25-35) Mean Corpuscular Hemoglobin Concent 35 g/dL (31-37) Red Cell Distribution Width 14.3 % (11.5-14.5) Platelet Count 183 x10^3/uL (140-400) Neutrophils (%) (Auto) 67 % (31-73) Lymphocytes (%) (Auto) 20 % (24-48) Monocytes (%) (Auto) 11 % (0-9) Eosinophils (%) (Auto) 0 % (0-3) Basophils (%) (Auto) 1 % (0-3) Neutrophils # (Auto) 7.8 x10^3/uL (1.8-7.7) Lymphocytes # (Auto) 2.3 x10^3/uL (1.0-4.8) Monocytes # (Auto) 1.2 x10^3/uL (0.0-1.1) Eosinophils # (Auto) 0.0 x10^3/uL (0.0-0.7) Basophils # (Auto) 0.2 x10^3/uL (0.0-0.2) Sodium Level 141 mmol/L (136-145) Potassium Level 3.8 mmol/L (3.5-5.1) Chloride Level 101 mmol/L (98-107) Carbon Dioxide Level 29 mmol/L (21-32) Anion Gap 11 (6-14) Blood Urea Nitrogen 16 mg/dL (8-26) Creatinine 1.3 mg/dL (0.7-1.3) Estimated GFR (Cockcroft-Gault) 54.4 BUN/Creatinine Ratio 12 (6-20) Glucose Level 138 mg/dL (70-99) Calcium Level 9.0 mg/dL (8.5-10.1) Magnesium Level 1.9 mg/dL (1.8-2.4) Total Bilirubin 1.1 mg/dL (0.2-1.0) Aspartate Amino Transf (AST/SGOT) 23 U/L (15-37) Alanine Aminotransferase (ALT/SGPT) 19 U/L (16-63) Alkaline Phosphatase 63 U/L (46-116) Creatine Kinase 252 U/L (39-308) Troponin I Quantitative < 0.017 ng/mL (0.000-0.055) Total Protein 7.1 g/dL (6.4-8.2) Albumin 3.5 g/dL (3.4-5.0) Albumin/Globulin Ratio 1.0 (1.0-1.7) Thyroid Stimulating Hormone (TSH) 2.926 uIU/mL (0.358-3.74) Urine Collection Type Unknown Urine Color Yellow Urine Clarity Clear Urine pH 6.5 Urine Specific [place] 1.025 Urine Protein Negative mg/dL (NEG-TRACE) Urine Glucose (UA) Negative mg/dL (NEG) Urine Ketones (Stick) Negative mg/dL (NEG) Urine Blood Negative (NEG) Urine Nitrite Negative (NEG) Urine Bilirubin Negative (NEG) Urine Urobilinogen Dipstick 0.2 mg/dL (0.2 mg/dL) Urine Leukocyte Esterase Negative (NEG) Urine RBC Occ /HPF (0-2) Urine WBC 1-4 /HPF (0-4) Urine Squamous Epithelial Cells Few /LPF Urine Bacteria Few /HPF (0-FEW) Urine Hyaline Casts Few /HPF Urine Mucus Mod /LPF Laboratory Tests Test 05/26/19 09:40 05/26/19 10:20 White Blood Count 11.5 x10^3/uL (4.0-11.0) Red Blood Count 4.43 x10^6/uL (4.30-5.70) Hemoglobin 14.4 g/dL (13.0-17.5) Hematocrit 41.1 % (39.0-53.0) Mean Corpuscular Volume 93 fL (79-100) Mean Corpuscular Hemoglobin 33 pg (25-35) Mean Corpuscular Hemoglobin Concent 35 g/dL (31-37) Red Cell Distribution Width 14.3 % (11.5-14.5) Platelet Count 183 x10^3/uL (140-400) Neutrophils (%) (Auto) 67 % (31-73) Lymphocytes (%) (Auto) 20 % (24-48) Monocytes (%) (Auto) 11 % (0-9) Eosinophils (%) (Auto) 0 % (0-3) Basophils (%) (Auto) 1 % (0-3) Neutrophils # (Auto) 7.8 x10^3/uL (1.8-7.7) Lymphocytes # (Auto) 2.3 x10^3/uL (1.0-4.8) Monocytes # (Auto) 1.2 x10^3/uL (0.0-1.1) Eosinophils # (Auto) 0.0 x10^3/uL (0.0-0.7) Basophils # (Auto) 0.2 x10^3/uL (0.0-0.2) Sodium Level 141 mmol/L (136-145) Potassium Level 3.8 mmol/L (3.5-5.1) Chloride Level 101 mmol/L (98-107) Carbon Dioxide Level 29 mmol/L (21-32) Anion Gap 11 (6-14) Blood Urea Nitrogen 16 mg/dL (8-26) Creatinine 1.3 mg/dL (0.7-1.3) Estimated GFR (Cockcroft-Gault) 54.4 BUN/Creatinine Ratio 12 (6-20) Glucose Level 138 mg/dL (70-99) Calcium Level 9.0 mg/dL (8.5-10.1) Magnesium Level 1.9 mg/dL (1.8-2.4) Total Bilirubin 1.1 mg/dL (0.2-1.0) Aspartate Amino Transf (AST/SGOT) 23 U/L (15-37) Alanine Aminotransferase (ALT/SGPT) 19 U/L (16-63) Alkaline Phosphatase 63 U/L (46-116) Creatine Kinase 252 U/L (39-308) Troponin I Quantitative < 0.017 ng/mL (0.000-0.055) Total Protein 7.1 g/dL (6.4-8.2) Albumin 3.5 g/dL (3.4-5.0) Albumin/Globulin Ratio 1.0 (1.0-1.7) Thyroid Stimulating Hormone (TSH) 2.926 uIU/mL (0.358-3.74) Urine Collection Type Unknown Urine Color Yellow Urine Clarity Clear Urine pH 6.5 Urine Specific [place] 1.025 Urine Protein Negative mg/dL (NEG-TRACE) Urine Glucose (UA) Negative mg/dL (NEG) Urine Ketones (Stick) Negative mg/dL (NEG) Urine Blood Negative (NEG) Urine Nitrite Negative (NEG) Urine Bilirubin Negative (NEG) Urine Urobilinogen Dipstick 0.2 mg/dL (0.2 mg/dL) Urine Leukocyte Esterase Negative (NEG) Urine RBC Occ /HPF (0-2) Urine WBC 1-4 /HPF (0-4) Urine Squamous Epithelial Cells Few /LPF Urine Bacteria Few /HPF (0-FEW) Urine Hyaline Casts Few /HPF Urine Mucus Mod /LPF Assessment/Plan Assessment/Plan Syncope after recent lumbar surgery Plan Cardiac monitoring Consult Dr. Herring [facility] cardiology Home meds DVT prophylaxis Full code RUTH GRIFFIN III DO May 26, 2019 14:31
[2019-05-26] MEDS ORDERED: CONTRAST GIVEN. MC PRN (15:15)
[2019-05-26] MEDS ORDERED: IOHEXOL 350 MG/ML 100 ML VIAL. IV ONE (15:15)
--- NOTE | 2019-05-26 16:01 | RAD ---
EXAM: CT angiography of the abdomen and pelvis with intravenous contrast; lumbar spine CT without contrast. HISTORY: Pain. TECHNIQUE: Computed tomographic images of the abdomen and pelvis were obtained following the administration of 90 cc Omnipaque 350 intravenous contrast according to angiography protocol. Multiplanar reformatting was performed and 3-dimensional maximum intensity projection images were obtained. Reconstructed images of the lumbar spine were also obtained. *One or more of the following individualized dose reduction techniques were utilized for this examination: 1. Automated exposure control. 2. Adjustment of the mA and/or kV according to patient size. 3. Use of iterative reconstruction technique. COMPARISON: 04/09/2019. FINDINGS: Evaluation of the lower thorax demonstrates coronary artery and aortic atherosclerosis. There is bilateral basilar and posterior dependent atelectasis. There is suspected linear scarring or atelectasis within the lingula and right middle lobe. There is a tiny hiatal hernia. There is hepatic steatosis. There is a 3.1 cm cyst within the left hepatic lobe. There is a 1.0 cm focus of enhancement within the anterior right hepatic lobe at the level of the hepatic dome, likely artifactual or due to slight shunt phenomenon or transient hepatic attenuation difference. No suspicious hepatic lesion is seen. The gallbladder is slightly distended. This is likely due to the preprandial status of the patient. The pancreas, spleen and adrenal glands are unremarkable. There is left greater than right renal cortical scarring. There is no hydronephrosis or suspicious renal lesion. There is a normal-appearing appendix. No abnormally thickened or dilated loop of bowel is seen. There is distal colonic diverticulosis without evidence of diverticulitis. There are calcifications within a prominent prostate. The urinary bladder is unremarkable. There is a fat-containing umbilical hernia. The hernia sac measures 4.7 cm and there is stranding within the herniated fat and adjacent ventral peritoneal fat likely due to a component of fat ischemia. There is no lymphadenopathy. There is abdominal aortic and aortic branch vessel atherosclerosis. There is mild narrowing of the celiac axis origin at the level of the median arcuate ligament, measuring less than 50% and not clearly within limits to suggest median arcuate ligament syndrome. The superior mesenteric artery is widely patent. There aren't accessory bilateral renal arteries. There is suspected 50% narrowing at the origin of the main right renal artery and greater than 75% stenosis of the origin of accessory left renal artery. The inferior mesenteric artery is widely patent. There is calcified plaque within the iliac bifurcation. No hemodynamically significant stenosis, dissection or aneurysm is seen. There are few benign bony islands. There are degenerative changes involving the sacroiliac joints. There is mild retrolisthesis of L1 on L2, L2 on L3 and L3 on L4. There is a mild chronic compression fracture with superior endplate Schmorl's node at T8. There is a minimal compression fracture with superior endplate Schmorl's node at T7. No acute fracture is seen. No suspicious lytic or sclerotic osseous lesion is seen. At L1-L2, there is a disc bulge and anterior predominant endplate remodeling. There is minimal right facet arthropathy. There is no stenosis. At L2-L3, there is a disc bulge and left foraminal to extra foraminal disc osteophyte complex superimposed on endplate remodeling. There is mild retrolisthesis. There is mild left facet arthropathy. There is mild left foraminal stenosis. At L3-L4, there is a disc bulge with left foraminal to extra foraminal disc osteophyte complex superimposed on endplate remodeling. There is mild left facet arthropathy. There is a focus of gas within the left posterior central canal and overlying soft tissues due to recent surgery or instrumentation. There is mild retrolisthesis. There is mild right and moderate left foraminal stenosis. There is mild central canal stenosis. At L4-L5, there is a disc bulge and endplate osteophytosis. There is moderate right facet arthropathy. There are left hemilaminectomy changes. There is fat and a focus of gas within the laminectomy decompression space. There is moderate to severe left greater than right foraminal stenosis. There is persistent moderate central canal stenosis. At L5-S1, there is a disc bulge and endplate remodeling. There is mild left and minimal right facet arthropathy. There is moderate left foraminal stenosis. IMPRESSION: 1. Aortic and aortic branch vessel atherosclerosis, described above. There is no evidence of aneurysm or dissection. 2. Small fat-containing umbilical hernia. There is stranding within the herniated fat and ventral peritoneal fat suggesting a component of fat ischemia. 3. Findings consistent with left hemilaminectomy surgery at L4-L5. There are foci of gas within the posterior back and within the laminectomy decompression space and central canal at the lower lumbar levels due to relative recent surgery. There is persistent foraminal and central canal stenosis at the aforementioned levels. This is further characterized on a CT myelogram dated 04/12/2019. 4. Colonic diverticulosis. 5. Hepatic steatosis and small hepatic cyst. 6. Renal cortical scarring. 7. Tiny hiatal hernia. Electronically signed by: Crissy Cuello MD (05/26/2019 3:57 PM) [facility]
--- NOTE | 2019-05-26 16:12 | PDOC ---
Provider Note Provider Note Patient seen and examined POD #1 S/P lumbar laminectomy L4-5 discharged yesterday from PACU, reports back pain this morning when he got up, sat at the chair but then woke up on the floor neuro intact dressing C,D,I, flat cardiac work up in progress to evaluate for syncopal episode will follow ENOC SANCHEZ MD May 26, 2019 16:12
[2019-05-26] MEDS ORDERED: MORPHINE SULFATE 2 MG/ML VIAL. IM ONE (16:15)
[2019-05-26] MEDS: MORPHINE SULFATE 2 MG/ML VIAL. IV PRN ×2 (16:22→20:32)
[2019-05-26] MEDS ORDERED: METHOCARBAMOL 750 MG TABLET PO PRN (19:15)
[2019-05-26 19:50] VITALS: BP 133/70
[2019-05-26] MEDS: DOCUSATE SODIUM 100 MG CAPSULE. PO SCH (20:30)
[2019-05-26] MEDS: SILDENAFIL CITRATE 20 MG TABLET. PO SCH (20:31)
[2019-05-26] MEDS: ATORVASTATIN CALCIUM 40 MG TABLET. PO SCH (20:31)
[2019-05-26 22:17] VITALS: BP 145/73
[2019-05-27] VITALS (9 sets, daily range): BP systolic 73–153; BP diastolic 48–83
[2019-05-27] MEDS: MORPHINE SULFATE 2 MG/ML VIAL. IV PRN ×7 (00:32→22:23)
[2019-05-27] MEDS: HYDROcodone/APAP 5/325MG 1 TAB TABLET PO PRN ×3 (03:36→22:24)
[2019-05-27] MEDS ORDERED: NAPROXEN 250 MG TABLET PO SCH (08:00)
[2019-05-27] MEDS: SILDENAFIL CITRATE 20 MG TABLET. PO SCH ×3 (09:29→20:17)
[2019-05-27] MEDS: OMEGA-3 FATTY ACIDS/FISH OIL 1,000 MG CAPSULE. PO SCH (09:29)
[2019-05-27] MEDS: hydroCHLOROthiazide 25 MG TABLET PO SCH (09:30)
[2019-05-27] MEDS: PANTOPRAZOLE 40 MG TABLET.DR. PO SCH (09:30)
[2019-05-27] MEDS: DOCUSATE SODIUM 100 MG CAPSULE. PO SCH ×2 (09:30→20:17)
[2019-05-27] MEDS: ATENOLOL 25 MG TABLET. PO SCH (09:31)
--- NOTE | 2019-05-27 09:58 | CARD ---
MR#: [id number] Date of Study: 05/27/2019 Ordering Physician: ABI TEE, Referring Physician: AIB TEE Tech: Radha Sheridan GET APPROVED REPORT EXAM: Two-dimensional and M-mode echocardiogram with Doppler and color Doppler. Other Information Quality : Technically LimitedHR: 89bpm Rhythm : OtherTechnically limited study due to body habitus. INDICATION Syncope 2D DIMENSIONS RVDd3.1 (2.9-3.5cm)Left Atrium(2D)4.3 (1.6-4.0cm) IVSd1.5 (0.7-1.1cm)Aortic Root(2D)3.7 (2.0-3.7cm) LVDd4.6 (3.9-5.9cm)LVOT Diameter2.2 (1.8-2.4cm) PWd1.3 (0.7-1.1cm)LVDs3.3 (2.5-4.0cm) FS (%) 28.7 %SV54.1 ml LVEF(%)55.4 (>50%) M-Mode DIMENSIONS Left Atrium(MM)4.30 (2.5-4.0cm)Aortic Root3.65 (2.2-3.7cm) Aortic Valve AoV Peak Ken.137.3cm/sAoV VTI25.8cm AO Peak GR.7.5mmHgLVOT VTI 16.36cm AO Mean GR.4mmHgAVA (VTI)2.40cm2 Mitral Valve MV E Dbaibplp87.1cm/sMV DECEL [id number] MV A Xkeenmwo742.4cm/sE/A Ratio1.0 MV A Hoqtudeu01xd TDI Lateral E' P. V11.52cm/sMedial E' P. V10.94cm/s E/Lateral E'8.5E/Medial E'9.0 LEFT VENTRICLE The left ventricle is normal size. There is mild concentric left ventricular hypertrophy. The left ve ntricular systolic function is normal. The Ejection Fraction is 55-60%. There is normal LV segmental wall motion. RIGHT VENTRICLE The right ventricle is normal size. There is normal right ventricular wall thickness. The right ventr icular systolic function is normal. ATRIA The left atrium is mildly dilated. The right atrium size is normal. The interatrial septum is intact with no evidence for an atrial septal defect or patent foramen ovale as noted on 2-D or Doppler imagi ng. AORTIC VALVE The aortic valve is probably trileaflet. The aortic valve is not well visualized. Doppler and Color F low revealed no significant aortic regurgitation. There is no significant aortic valvular stenosis. MITRAL VALVE The mitral valve is normal in structure and function. There is no evidence of mitral valve prolapse. There is no mitral valve stenosis. Doppler and Color Flow revealed no mitral valve regurgitation note d. TRICUSPID VALVE The tricuspid valve is normal in structure and function. Doppler and Color Flow revealed no tricuspid valve regurgitation noted. There is no tricuspid valve prolapse or vegetation. There is no tricuspid valve stenosis. PULMONIC VALVE The pulmonic valve is not well visualized. GREAT VESSELS The aortic root is normal in size. The ascending aorta is normal in size. The IVC is normal in size a nd collapses >50% with inspiration. PERICARDIAL EFFUSION There is no evidence of significant pericardial effusion. Critical Notification Critical Value: No <Conclusion> Technically difficult study. The left ventricular systolic function is normal. The Ejection Fraction is 55-60%. There is normal LV segmental wall motion. There is no evidence of significant pericardial effusion. Signed by : Marcelo Farah, Electronically Approved : 05/27/2019 09:58:12
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
--- NOTE | 2019-05-27 13:31 | PDOC ---
ABI TEE LIP CUTTER 05/27/19 1331: CARDIO Progress Notes Date and Time Date of Service 05/27/2019 Time of Evaluation 1310 Subjective Subjective: No Chest Pain, No shortness of breath, No Palpitations Vitals Vitals Vital Signs Date Time Temp Pulse Resp B/P (MAP) Pulse Ox O2 Delivery O2 Flow Rate FiO2 05/27/19 12:36 98 Room Air 05/27/19 11:07 97.9 82 18 132/68 (89) 97.9 Weight Weight [ ] Input and Output Intake and Output Intake and Output 05/27/19 07:00 Intake Total 2200 ml Balance 2200 ml Intake Oral 1250 ml IV Total 950 ml # Voids 6 Physical Exam HEENT: Neck Supple W Full Motion Chest: Symmetric LUNGS: Clear to Auscultation Heart: S1S2, RRR (SR) Abdomen: Soft N/T Extremities: No Calf Tenderness Neurology: alert, oriented, follow commands Assessment Assessment 1. Syncope with fall: no obvious injury. Suspect vasovagal from severe pain. No significant ectopies. Negative for CSH. EF and WM nml. 2. Vertigo: occurred prior to syncope. None further 3. Lower back pain/abd pain: S/P LMD POD#3. Back pain remains. Negative CTA for aneurysm/dissection 4. HTN: controlled 5. HLP 6. Hx of Left shoulder shrapnel: hence no MRI 7. Lumbar radiculopathy: Absent since surgery 8. 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 9. Bilateral EULALIA: incidental finding, moderate lesions 10. Routine sildanefil: reason for use? pt denies pulmonary HTN and he does have ED. Recommendations 1. baby ASA, lipitor, continue home atenolol 2. Will arrange for outpt event monitor. Orthostatic readings 3. BP stable. Encouraged HBPM and minimize use of NSAIDs. Will monitor EULALIA as an outpt 4. Follow up in office in 4 weeks. LIV LANZA MD 05/27/193: CARDIO Progress Notes Assessment Assessment Patient seen and examined. Agree with HOST/HOSTESS's assessment and plan. Syncope most probably vasovagal Tele did not show any arrhythmias 2D echo showed normal LVF Plan event monitor as outpatient ABI TEE APRN May 27, 2019 13:31 LIV LANZA MD May 27, 2019 19:23
[2019-05-27] MEDS ORDERED: BISACODYL 10 MG SUPP.RECT. PR PRN (13:45)
--- NOTE | 2019-05-27 13:53 | NUR ---
SS following for discharge planning. SS reviewed pt chart. Pt is from home and is currently on room air. PT evaluated and recommended acute rehabilitation. SS met with pt and discussed discharge planning and acute rehabilitation. Pt declined inpatient rehabilitation stating that he will not go anywhere that he has to stay. Pt reported being worried about his home at night and reported that he needs to be home. SS discussed options of home healthcare or outpatient therapy. Pt requested that SS revisit with him in the morning. SS will continue to follow for discharge planning.
[2019-05-27] MEDS: MAGNESIUM HYDROXIDE 2,400 MG/30 ML ORAL.SUSP. PO PRN (14:32)
--- NOTE | 2019-05-27 14:49 | PDOC ---
PROGRESS NOTES Subjective Subjective POD #2 up in chair no leg pain, still has back pain, slightly better today Objective Objective Vital Signs Date Time Temp Pulse Resp B/P (MAP) Pulse Ox O2 Delivery O2 Flow Rate FiO2 05/27/19 13:48 82 132/68 05/27/19 12:36 98 Room Air 05/27/19 11:07 97.9 18 97.9 Intake and Output 05/27/19 07:00 Intake Total 2200 ml Balance 2200 ml Intake Oral 1250 ml IV Total 950 ml # Voids 6 Physical Exam General: Alert, Oriented X3, Cooperative MUSCULOSKELETAL: Other (NAIR) Neuro: Normal speech, Other (strength 5/5 in BLE) Assessment Assessment Problems Medical Problems: (1) Post-op pain Status: Acute (2) Syncope Status: Acute Plan Plan of Care ok to dc from my standpoint will need SNF vs Home health PT/ Nursing Comment Review of Relevant I have reviewed the following items jens (where applicable) has been applied. Labs Laboratory Tests Test 05/26/19 09:40 05/26/19 10:20 White Blood Count 11.5 x10^3/uL (4.0-11.0) Red Blood Count 4.43 x10^6/uL (4.30-5.70) Hemoglobin 14.4 g/dL (13.0-17.5) Hematocrit 41.1 % (39.0-53.0) Mean Corpuscular Volume 93 fL (79-100) Mean Corpuscular Hemoglobin 33 pg (25-35) Mean Corpuscular Hemoglobin Concent 35 g/dL (31-37) Red Cell Distribution Width 14.3 % (11.5-14.5) Platelet Count 183 x10^3/uL (140-400) Neutrophils (%) (Auto) 67 % (31-73) Lymphocytes (%) (Auto) 20 % (24-48) Monocytes (%) (Auto) 11 % (0-9) Eosinophils (%) (Auto) 0 % (0-3) Basophils (%) (Auto) 1 % (0-3) Neutrophils # (Auto) 7.8 x10^3/uL (1.8-7.7) Lymphocytes # (Auto) 2.3 x10^3/uL (1.0-4.8) Monocytes # (Auto) 1.2 x10^3/uL (0.0-1.1) Eosinophils # (Auto) 0.0 x10^3/uL (0.0-0.7) Basophils # (Auto) 0.2 x10^3/uL (0.0-0.2) Sodium Level 141 mmol/L (136-145) Potassium Level 3.8 mmol/L (3.5-5.1) Chloride Level 101 mmol/L (98-107) Carbon Dioxide Level 29 mmol/L (21-32) Anion Gap 11 (6-14) Blood Urea Nitrogen 16 mg/dL (8-26) Creatinine 1.3 mg/dL (0.7-1.3) Estimated GFR (Cockcroft-Gault) 54.4 BUN/Creatinine Ratio 12 (6-20) Glucose Level 138 mg/dL (70-99) Calcium Level 9.0 mg/dL (8.5-10.1) Magnesium Level 1.9 mg/dL (1.8-2.4) Total Bilirubin 1.1 mg/dL (0.2-1.0) Aspartate Amino Transf (AST/SGOT) 23 U/L (15-37) Alanine Aminotransferase (ALT/SGPT) 19 U/L (16-63) Alkaline Phosphatase 63 U/L (46-116) Creatine Kinase 252 U/L (39-308) Troponin I Quantitative < 0.017 ng/mL (0.000-0.055) Total Protein 7.1 g/dL (6.4-8.2) Albumin 3.5 g/dL (3.4-5.0) Albumin/Globulin Ratio 1.0 (1.0-1.7) Thyroid Stimulating Hormone (TSH) 2.926 uIU/mL (0.358-3.74) Urine Collection Type Unknown Urine Color Yellow Urine Clarity Clear Urine pH 6.5 Urine Specific [place] 1.025 Urine Protein Negative mg/dL (NEG-TRACE) Urine Glucose (UA) Negative mg/dL (NEG) Urine Ketones (Stick) Negative mg/dL (NEG) Urine Blood Negative (NEG) Urine Nitrite Negative (NEG) Urine Bilirubin Negative (NEG) Urine Urobilinogen Dipstick 0.2 mg/dL (0.2 mg/dL) Urine Leukocyte Esterase Negative (NEG) Urine RBC Occ /HPF (0-2) Urine WBC 1-4 /HPF (0-4) Urine Squamous Epithelial Cells Few /LPF Urine Bacteria Few /HPF (0-FEW) Urine Hyaline Casts Few /HPF Urine Mucus Mod /LPF Medications Current Medications Fentanyl Citrate (Fentanyl 2ml Vial) 50 mcg 1X ONCE IVP Last administered on 05/26/19at 09:42; Start 05/26/19 at 09:15; Stop 05/26/19 at 09:23; Status DC Sodium Chloride 1,000 ml @ 1,000 mls/hr 1X ONCE IV Last administered on 05/26/19at 10:49; Start 05/26/19 at 10:45; Stop 05/26/19 at 11:44; Status DC Hydromorphone HCl (Dilaudid) 1 mg 1X ONCE IV Last administered on 05/26/19at 10:48; Start 05/26/19 at 10:45; Stop 05/26/19 at 10:46; Status DC Acetaminophen/ Hydrocodone Bitart (Lortab 5/325) 1 tab PRN Q4HRS PRN PO PAIN Last administered on 05/27/19at 03:36; Start 05/26/19 at 12:30 Fentanyl Citrate (Fentanyl 2ml Vial) 50 mcg 1X ONCE IM ; Start 05/26/19 at 13:45; Stop 05/26/19 at 13:48; Status DC Fentanyl Citrate (Fentanyl 2ml Vial) 50 mcg 1X ONCE IVP Last administered on 05/26/19at 14:00; Start 05/26/19 at 14:00; Stop 05/26/19 at 14:01; Status DC Sodium Chloride 1,000 ml @ 75 mls/hr 1X ONCE IV Last administered on 05/26/19at 16:09; Start 05/26/19 at 15:15; Stop 05/27/19 at 04:34; Status DC Iohexol (Omnipaque 350 Mg/ml) 90 ml 1X ONCE IV Last administered on 05/26/19at 15:15; Start 05/26/19 at 15:15; Stop 05/26/19 at 15:16; Status DC Info (CONTRAST GIVEN -- Rx MONITORING) 1 each PRN DAILY PRN MC SEE COMMENTS; Start 05/26/19 at 15:15; Stop 05/28/19 at 15:14 Morphine Sulfate (Morphine Sulfate) 2 mg 1X ONCE IM ; Start 05/26/19 at 16:15; Stop 05/26/19 at 16:16; Status UNV Morphine Sulfate (Morphine Sulfate) 2 mg PRN Q2HR PRN IV PAIN Last administered on 05/27/19 12:06; Start 05/26/19 at 16:15 Atenolol (Tenormin) 25 mg DAILY PO Last administered on 05/27/19 09:31; Start 05/27/19 at 09:00 Atorvastatin Calcium (Lipitor) 40 mg QHS PO Last administered on 05/26/19 20:31; Start 05/26/19 at 21:00 Docusate Sodium (Colace) 100 mg BID PO Last administered on 05/27/19 09:30; Start 05/26/19 at 21:00 Hydrochlorothiazide (Hydrodiuril) 25 mg DAILY PO Last administered on 05/27/19 09:30; Start 05/27/19 at 09:00 Methocarbamol (Robaxin) 750 mg TID PRN PRN PO MUSCLE SPASMS Last administered on 05/27/19 14:32; Start 05/26/19 at 19:15 Sildenafil Citrate (Revatio) 20 mg TID PO Last administered on 05/27/19 13:48; Start 05/26/19 at 21:00 Naproxen (Naprosyn) 250 mg BIDWMEALS PO ; Start 05/27/19 at 08:00; Stop 05/27/19 at 13:50; Status DC Fish Oil (Fish Oil) 1,000 mg DAILY PO Last administered on 05/27/19 09:29; Start 05/27/19 at 09:00 Pantoprazole Sodium (Protonix) 40 mg DAILYAC PO Last administered on 05/27/19 09:30; Start 05/27/19 at 07:30 Aspirin (Ecotrin) 81 mg DAILYWBKFT PO ; Start 05/28/19 at 08:00 Bisacodyl (Dulcolax Tab) 10 mg DAILY PO ; Start 05/28/19 at 09:00 Bisacodyl (Dulcolax Supp) 10 mg PRN DAILY PRN [place] CONSTIPATION; Start 05/27/19 at 13:45 Magnesium Hydroxide (Milk Of Magnesia) 2,400 mg PRN DAILY PRN PO CONSTIPATION Last administered on 11/7/19at 14:32; Start 05/27/19 at 13:45 Active Scripts Active Robaxin-750 (Methocarbamol) 750 Mg Tablet 750 Mg PO TID PRN PRN Colace (Docusate Sodium) 100 Mg Capsule 100 Mg PO BID [place] 5-325 Tablet (Acetaminophen/Hydrocodone Bitart) 1 Each Tablet 1-2 Tab PO Q4-6HRS PRN Reported Atorvastatin Calcium 40 Mg Tablet 1 Tab PO QHS Aleve (Naproxen Sodium) 220 Mg Tablet 220 Mg PO BID Prilosec Otc (Omeprazole Magnesium) 20 Mg Tablet. 20 Mg PO DAILY Atenolol 25 Mg Tablet 25 Mg PO DAILY Sildenafil (Sildenafil Citrate) 20 Mg Tablet 20 Mg PO TID [place] 3 Fish Oil Softgel ([place]-3 Fatty Acids/Fish Oil) 1 Each Capsule. 1 Each PO DAILY Hydrochlorothiazide Tablet (Hydrochlorothiazide) 25 Mg Tablet 25 Mg PO DAILY Vitals/I & O Vital Sign - Last 24 Hours 05/26/19 05/26/19 05/26/19 05/26/19 15:07 16:22 16:53 19:40 Pulse Ox 94 94 94 O2 Delivery Room Air Room Air Room Air Room Air 05/26/19 05/26/19 05/26/19 05/26/19 19:50 20:31 20:32 21:02 Temp 98.0 98.0 Pulse 104 104 Resp 18 B/P (MAP) 133/70 (91) 133/70 Pulse Ox 97 97 97 O2 Delivery Room Air Room Air Room Air 05/26/19 05/27/19 05/27/19 05/27/19 22:17 00:32 01:02 03:02 Temp 98.9 97.5 98.9 97.5 Pulse 102 110 Resp 18 18 B/P (MAP) 145/73 (97) 106/58 (74) Pulse Ox 97 96 O2 Delivery Room Air Room Air Room Air Room Air 05/27/19 05/27/19 05/27/19 05/27/19 03:36 04:09 04:36 04:36 O2 Delivery Room Air Room Air Room Air Room Air 05/27/19 05/27/19 05/27/19 05/27/19 07:00 08:00 09:29 09:31 Temp 98.1 98.1 Pulse 85 85 85 Resp 18 B/P (MAP) 147/83 (104) 147/83 147/83 Pulse Ox 96 O2 Delivery Room Air Room Air 05/27/19 05/27/19 05/27/19 05/27/19 09:36 10:06 11:07 12:06 Temp 97.9 97.9 Pulse 82 Resp 18 B/P (MAP) 132/68 (89) Pulse Ox 96 98 98 98 O2 Delivery Room Air Room Air Room Air Room Air 05/27/19 05/27/19 12:36 13:48 Pulse 82 B/P (MAP) 132/68 Pulse Ox 98 O2 Delivery Room Air Intake and Output 05/26/19 05/26/19 05/27/19 15:00 23:00 07:00 Intake Total 0 ml 2200 ml Balance 0 ml 2200 ml ENOC SANCHEZ MD May 27, 2019 14:49
--- NOTE | 2019-05-27 14:59 | NUR ---
Patient voided 120ml of urine and post residual of 620ml obtained. Awaiting Primary order.
--- NOTE | 2019-05-27 15:13 | PDOC ---
PULMONARY PROGRESS NOTES Vitals Vital Signs Date Time Temp Pulse Resp B/P (MAP) Pulse Ox O2 Delivery O2 Flow Rate FiO2 05/27/19 13:48 82 132/68 05/27/19 12:36 98 Room Air 05/27/19 11:07 97.9 18 97.9 Labs Laboratory Tests Test 05/26/19 09:40 05/26/19 10:20 White Blood Count 11.5 x10^3/uL (4.0-11.0) Red Blood Count 4.43 x10^6/uL (4.30-5.70) Hemoglobin 14.4 g/dL (13.0-17.5) Hematocrit 41.1 % (39.0-53.0) Mean Corpuscular Volume 93 fL (79-100) Mean Corpuscular Hemoglobin 33 pg (25-35) Mean Corpuscular Hemoglobin Concent 35 g/dL (31-37) Red Cell Distribution Width 14.3 % (11.5-14.5) Platelet Count 183 x10^3/uL (140-400) Neutrophils (%) (Auto) 67 % (31-73) Lymphocytes (%) (Auto) 20 % (24-48) Monocytes (%) (Auto) 11 % (0-9) Eosinophils (%) (Auto) 0 % (0-3) Basophils (%) (Auto) 1 % (0-3) Neutrophils # (Auto) 7.8 x10^3/uL (1.8-7.7) Lymphocytes # (Auto) 2.3 x10^3/uL (1.0-4.8) Monocytes # (Auto) 1.2 x10^3/uL (0.0-1.1) Eosinophils # (Auto) 0.0 x10^3/uL (0.0-0.7) Basophils # (Auto) 0.2 x10^3/uL (0.0-0.2) Sodium Level 141 mmol/L (136-145) Potassium Level 3.8 mmol/L (3.5-5.1) Chloride Level 101 mmol/L (98-107) Carbon Dioxide Level 29 mmol/L (21-32) Anion Gap 11 (6-14) Blood Urea Nitrogen 16 mg/dL (8-26) Creatinine 1.3 mg/dL (0.7-1.3) Estimated GFR (Cockcroft-Gault) 54.4 BUN/Creatinine Ratio 12 (6-20) Glucose Level 138 mg/dL (70-99) Calcium Level 9.0 mg/dL (8.5-10.1) Magnesium Level 1.9 mg/dL (1.8-2.4) Total Bilirubin 1.1 mg/dL (0.2-1.0) Aspartate Amino Transf (AST/SGOT) 23 U/L (15-37) Alanine Aminotransferase (ALT/SGPT) 19 U/L (16-63) Alkaline Phosphatase 63 U/L (46-116) Creatine Kinase 252 U/L (39-308) Troponin I Quantitative < 0.017 ng/mL (0.000-0.055) Total Protein 7.1 g/dL (6.4-8.2) Albumin 3.5 g/dL (3.4-5.0) Albumin/Globulin Ratio 1.0 (1.0-1.7) Thyroid Stimulating Hormone (TSH) 2.926 uIU/mL (0.358-3.74) Urine Collection Type Unknown Urine Color Yellow Urine Clarity Clear Urine pH 6.5 Urine Specific [place] 1.025 Urine Protein Negative mg/dL (NEG-TRACE) Urine Glucose (UA) Negative mg/dL (NEG) Urine Ketones (Stick) Negative mg/dL (NEG) Urine Blood Negative (NEG) Urine Nitrite Negative (NEG) Urine Bilirubin Negative (NEG) Urine Urobilinogen Dipstick 0.2 mg/dL (0.2 mg/dL) Urine Leukocyte Esterase Negative (NEG) Urine RBC Occ /HPF (0-2) Urine WBC 1-4 /HPF (0-4) Urine Squamous Epithelial Cells Few /LPF Urine Bacteria Few /HPF (0-FEW) Urine Hyaline Casts Few /HPF Urine Mucus Mod /LPF Medications Active Scripts Medications Dose Route/Sig Max Daily Dose Days Date Category Atorvastatin Calcium 40 Mg Tablet 1 Tab PO QHS 05/26/19 Reported Robaxin-750 (Methocarbamol) 750 Mg Tablet 750 Mg PO TID PRN PRN 05/24/19 Rx Colace (Docusate Sodium) 100 Mg Capsule 100 Mg PO BID 05/24/19 Rx [place] 5-325 Tablet (Acetaminophen/Hydrocodone Bitart) 1 Each Tablet 1-2 Tab PO Q4-6HRS PRN 05/24/19 Rx Aleve (Naproxen Sodium) 220 Mg Tablet 220 Mg PO BID 05/14/19 Reported Prilosec Otc (Omeprazole Magnesium) 20 Mg Tablet.dr 20 Mg PO DAILY 05/14/19 Reported Atenolol 25 Mg Tablet 25 Mg PO DAILY 05/14/19 Reported Sildenafil (Sildenafil Citrate) 20 Mg Tablet 20 Mg PO TID 04/12/19 Reported [place] 3 Fish Oil Softgel ([place]-3 Fatty Acids/Fish Oil) 1 Each Capsule.dr 1 Each PO DAILY 04/12/19 Reported Hydrochlorothiazide Tablet (Hydrochlorothiazide) 25 Mg Tablet 25 Mg PO DAILY 04/12/19 Reported Impression . NOTE DICTATED OK TO D/C IN AM ATLECTASIS SEE ORDERS THANKS LOLA FLETCHER MD May 27, 2019 15:13
[2019-05-27] MEDS ORDERED: ALBUTEROL SULFATE 2.5 MG/3 ML NEBU. NEB PRN (15:15)
--- NOTE | 2019-05-27 16:10 | NUR ---
Patient post residual is 700ml. Pt refused urinary catheterization wants to continue to try to void. aware.
[2019-05-27] MEDS: ATORVASTATIN CALCIUM 40 MG TABLET. PO SCH (20:17)
--- NOTE | 2019-05-27 21:02 | CONS ---
DATE OF CONSULTATION: 05/27/2019 ATTENDING PHYSICIAN: Suellen Fallon DO REASON FOR CONSULTATION: The patient was seen in pulmonary consultation at the request of Dr. Fallon for abnormal x-ray. HISTORY OF PRESENT ILLNESS: The patient is a 69-year-old who came in with a syncopal episode. The patient is postop day #2 from laminectomy. He had surgery by Dr. Farias. He presented with a syncopal episode. He was not short of air. No acute onset of shortness of air associated with syncope. No productive cough. Prior to his surgery, he was cutting grass without difficulty. He did smoke, but quit in 1976. He does not have a diagnosis of COPD. His x-ray reveals some atelectasis. PAST MEDICAL HISTORY: Otherwise remarkable for recent laminectomy. He has a history of hypertension, hyperlipidemia, left shoulder surgery, osteoarthritis. PAST SURGICAL HISTORY: Previous shoulder surgery, tonsillectomy, and recent laminectomy. ALLERGIES: No known drug allergies. SOCIAL HISTORY: He quit tobacco in 1976. FAMILY HISTORY: No family history of lung disorders. REVIEW OF SYSTEMS: As indicated above, otherwise, a 10-point system was reviewed and negative. CURRENT MEDICATIONS: List was reviewed. PHYSICAL EXAMINATION: GENERAL: The patient was in no respiratory distress. VITAL SIGNS: Currently on room air saturation greater than 92%. HEENT: Eyes, the sclerae were nonicteric. NECK: Jugular venous distention was not elevated. No lymphadenopathy. CHEST: Full expansion. LUNGS: Adequate air flow with no wheezes. CARDIOVASCULAR: Regular rate and rhythm with S1, S2, no S3. ABDOMEN: Soft, nontender, nondistended. EXTREMITIES: No clubbing, cyanosis or edema. LABORATORY DATA: Chest x-ray reviewed with some atelectasis. IMPRESSION: 1. Abnormal x-ray compatible with expected atelectasis after hemilaminectomy with decompression of the dura and nerve root at L4 and L5. 2. Syncopal episode, suspect vasovagal. 3. Hypertension. 4. History of tobacco, quit in 1976. PLAN: 1. Recommend Incentive spirometry. 2. Nebulized treatment p.r.n. 3. Follow Cardiology input. 4. Follow Neurosurgery input. From my standpoint of view, the patient is okay to discharge at any point. I do appreciate the privilege in sharing in the patient's care. LOLA FLETCHER MD DR: Hill JOB#: [id number] / [id number]
[2019-05-28 02:08] VITALS: BP 107/60
[2019-05-28] MEDS: MORPHINE SULFATE 2 MG/ML VIAL. IV PRN ×3 (03:21→11:23)
[2019-05-28 05:23] LABS: BASO % 0 % (0-3); EOS # 0.1 x10^3/uL (0.0-0.7); EOS % 2 % (0-3); HEMATOCRIT 39.5 % (39.0-53.0); HEMOGLOBIN 13.8 g/dL (13.0-17.5); LYMPH # 1.9 x10^3/uL (1.0-4.8); LYMPH % 28 % (24-48); MEAN CORPUSCULAR HEMOGLOBIN 33 pg (25-35); MEAN CORPUSCULAR HGB CONC 35 g/dL (31-37); MEAN CORPUSCULAR VOLUME 93 fL (79-100); MONO # 0.7 x10^3/uL (0.0-1.1); MONO % 11 % (0-9); NEUT # 3.9 x10^3/uL (1.8-7.7); NEUT % 59 % (31-73); PLATELET COUNT 163 x10^3/uL (140-400); RED BLOOD COUNT 4.24 x10^6/uL (4.30-5.70); RED CELL DISTRIBUTION WIDTH 14.3 % (11.5-14.5); WHITE BLOOD COUNT 6.7 x10^3/uL (4.0-11.0)
[2019-05-28 05:41] LABS: ALBUMIN/GLOBULIN RATIO 0.8 (1.0-1.7); CALCIUM 8.8 mg/dL (8.5-10.1); CREATININE 1.1 mg/dL (0.7-1.3); POTASSIUM 3.3 mmol/L (3.5-5.1); TOTAL BILIRUBIN 1.4 mg/dL (0.2-1.0); TOTAL PROTEIN 6.7 g/dL (6.4-8.2)
[2019-05-28 06:51] VITALS: BP 131/71
[2019-05-28] MEDS: MAGNESIUM HYDROXIDE 2,400 MG/30 ML ORAL.SUSP. PO PRN (07:41)
[2019-05-28] MEDS: PANTOPRAZOLE 40 MG TABLET.DR. PO SCH (07:41)
[2019-05-28] MEDS ORDERED: ASPIRIN ENTERIC COATED 81 MG TABLET.DR. PO SCH (08:00)
--- NOTE | 2019-05-28 08:21 | PDOC ---
PULMONARY PROGRESS NOTES Subjective PT NOT MORE SOA IS PULLS 4 LITERS NO INCREASE COUGH Vitals Vital Signs Date Time Temp Pulse Resp B/P (MAP) Pulse Ox O2 Delivery O2 Flow Rate FiO2 05/28/19 06:51 98.8 80 18 131/71 (91) 94 Room Air 98.8 ROS: No Nausea, No Chest Pain, No Abdominal Pain, No Increase Cough General: Alert Lungs: Clear Cardiovascular: S1, S2 Abdomen: Soft, Non-tender Neuro Exam: Alert Extremities: No Edema Skin: Warm Labs Laboratory Tests Test 05/26/19 09:40 05/26/19 10:20 05/28/19 05:00 White Blood Count 11.5 x10^3/uL (4.0-11.0) 6.7 x10^3/uL (4.0-11.0) Red Blood Count 4.43 x10^6/uL (4.30-5.70) 4.24 x10^6/uL (4.30-5.70) Hemoglobin 14.4 g/dL (13.0-17.5) 13.8 g/dL (13.0-17.5) Hematocrit 41.1 % (39.0-53.0) 39.5 % (39.0-53.0) Mean Corpuscular Volume 93 fL (79-100) 93 fL (79-100) Mean Corpuscular Hemoglobin 33 pg (25-35) 33 pg (25-35) Mean Corpuscular Hemoglobin Concent 35 g/dL (31-37) 35 g/dL (31-37) Red Cell Distribution Width 14.3 % (11.5-14.5) 14.3 % (11.5-14.5) Platelet Count 183 x10^3/uL (140-400) 163 x10^3/uL (140-400) Neutrophils (%) (Auto) 67 % (31-73) 59 % (31-73) Lymphocytes (%) (Auto) 20 % (24-48) 28 % (24-48) Monocytes (%) (Auto) 11 % (0-9) 11 % (0-9) Eosinophils (%) (Auto) 0 % (0-3) 2 % (0-3) Basophils (%) (Auto) 1 % (0-3) 0 % (0-3) Neutrophils # (Auto) 7.8 x10^3/uL (1.8-7.7) 3.9 x10^3/uL (1.8-7.7) Lymphocytes # (Auto) 2.3 x10^3/uL (1.0-4.8) 1.9 x10^3/uL (1.0-4.8) Monocytes # (Auto) 1.2 x10^3/uL (0.0-1.1) 0.7 x10^3/uL (0.0-1.1) Eosinophils # (Auto) 0.0 x10^3/uL (0.0-0.7) 0.1 x10^3/uL (0.0-0.7) Basophils # (Auto) 0.2 x10^3/uL (0.0-0.2) 0.0 x10^3/uL (0.0-0.2) Sodium Level 141 mmol/L (136-145) 141 mmol/L (136-145) Potassium Level 3.8 mmol/L (3.5-5.1) 3.3 mmol/L (3.5-5.1) Chloride Level 101 mmol/L (98-107) 104 mmol/L (98-107) Carbon Dioxide Level 29 mmol/L (21-32) 26 mmol/L (21-32) Anion Gap 11 (6-14) 11 (6-14) Blood Urea Nitrogen 16 mg/dL (8-26) 19 mg/dL (8-26) Creatinine 1.3 mg/dL (0.7-1.3) 1.1 mg/dL (0.7-1.3) Estimated GFR (Cockcroft-Gault) 54.4 66.0 BUN/Creatinine Ratio 12 (6-20) 17 (6-20) Glucose Level 138 mg/dL (70-99) 124 mg/dL (70-99) Calcium Level 9.0 mg/dL (8.5-10.1) 8.8 mg/dL (8.5-10.1) Magnesium Level 1.9 mg/dL (1.8-2.4) Total Bilirubin 1.1 mg/dL (0.2-1.0) 1.4 mg/dL (0.2-1.0) Aspartate Amino Transf (AST/SGOT) 23 U/L (15-37) 18 U/L (15-37) Alanine Aminotransferase (ALT/SGPT) 19 U/L (16-63) 16 U/L (16-63) Alkaline Phosphatase 63 U/L (46-116) 56 U/L (46-116) Creatine Kinase 252 U/L (39-308) Troponin I Quantitative < 0.017 ng/mL (0.000-0.055) Total Protein 7.1 g/dL (6.4-8.2) 6.7 g/dL (6.4-8.2) Albumin 3.5 g/dL (3.4-5.0) 3.0 g/dL (3.4-5.0) Albumin/Globulin Ratio 1.0 (1.0-1.7) 0.8 (1.0-1.7) Thyroid Stimulating Hormone (TSH) 2.926 uIU/mL (0.358-3.74) Urine Collection Type Unknown Urine Color Yellow Urine Clarity Clear Urine pH 6.5 Urine Specific [place] 1.025 Urine Protein Negative mg/dL (NEG-TRACE) Urine Glucose (UA) Negative mg/dL (NEG) Urine Ketones (Stick) Negative mg/dL (NEG) Urine Blood Negative (NEG) Urine Nitrite Negative (NEG) Urine Bilirubin Negative (NEG) Urine Urobilinogen Dipstick 0.2 mg/dL (0.2 mg/dL) Urine Leukocyte Esterase Negative (NEG) Urine RBC Occ /HPF (0-2) Urine WBC 1-4 /HPF (0-4) Urine Squamous Epithelial Cells Few /LPF Urine Bacteria Few /HPF (0-FEW) Urine Hyaline Casts Few /HPF Urine Mucus Mod /LPF Laboratory Tests Test 05/28/19 05:00 White Blood Count 6.7 x10^3/uL (4.0-11.0) Red Blood Count 4.24 x10^6/uL (4.30-5.70) Hemoglobin 13.8 g/dL (13.0-17.5) Hematocrit 39.5 % (39.0-53.0) Mean Corpuscular Volume 93 fL (79-100) Mean Corpuscular Hemoglobin 33 pg (25-35) Mean Corpuscular Hemoglobin Concent 35 g/dL (31-37) Red Cell Distribution Width 14.3 % (11.5-14.5) Platelet Count 163 x10^3/uL (140-400) Neutrophils (%) (Auto) 59 % (31-73) Lymphocytes (%) (Auto) 28 % (24-48) Monocytes (%) (Auto) 11 % (0-9) Eosinophils (%) (Auto) 2 % (0-3) Basophils (%) (Auto) 0 % (0-3) Neutrophils # (Auto) 3.9 x10^3/uL (1.8-7.7) Lymphocytes # (Auto) 1.9 x10^3/uL (1.0-4.8) Monocytes # (Auto) 0.7 x10^3/uL (0.0-1.1) Eosinophils # (Auto) 0.1 x10^3/uL (0.0-0.7) Basophils # (Auto) 0.0 x10^3/uL (0.0-0.2) Sodium Level 141 mmol/L (136-145) Potassium Level 3.3 mmol/L (3.5-5.1) Chloride Level 104 mmol/L (98-107) Carbon Dioxide Level 26 mmol/L (21-32) Anion Gap 11 (6-14) Blood Urea Nitrogen 19 mg/dL (8-26) Creatinine 1.1 mg/dL (0.7-1.3) Estimated GFR (Cockcroft-Gault) 66.0 BUN/Creatinine Ratio 17 (6-20) Glucose Level 124 mg/dL (70-99) Calcium Level 8.8 mg/dL (8.5-10.1) Total Bilirubin 1.4 mg/dL (0.2-1.0) Aspartate Amino Transf (AST/SGOT) 18 U/L (15-37) Alanine Aminotransferase (ALT/SGPT) 16 U/L (16-63) Alkaline Phosphatase 56 U/L (46-116) Total Protein 6.7 g/dL (6.4-8.2) Albumin 3.0 g/dL (3.4-5.0) Albumin/Globulin Ratio 0.8 (1.0-1.7) Medications Active Scripts Medications Dose Route/Sig Max Daily Dose Days Date Category Atorvastatin Calcium 40 Mg Tablet 1 Tab PO QHS 05/26/19 Reported Robaxin-750 (Methocarbamol) 750 Mg Tablet 750 Mg PO TID PRN PRN 05/24/19 Rx Colace (Docusate Sodium) 100 Mg Capsule 100 Mg PO BID 05/24/19 Rx [place] 5-325 Tablet (Acetaminophen/Hydrocodone Bitart) 1 Each Tablet 1-2 Tab PO Q4-6HRS PRN 05/24/19 Rx Aleve (Naproxen Sodium) 220 Mg Tablet 220 Mg PO BID 05/14/19 Reported Prilosec Otc (Omeprazole Magnesium) 20 Mg Tablet. 20 Mg PO DAILY 05/14/19 Reported Atenolol 25 Mg Tablet 25 Mg PO DAILY 05/14/19 Reported Sildenafil (Sildenafil Citrate) 20 Mg Tablet 20 Mg PO TID 04/12/19 Reported [place] 3 Fish Oil Softgel ([place]-3 Fatty Acids/Fish Oil) 1 Each Capsule.dr 1 Each PO DAILY 04/12/19 Reported Hydrochlorothiazide Tablet (Hydrochlorothiazide) 25 Mg Tablet 25 Mg PO DAILY 04/12/19 Reported Impression . IMPRESSION: 1. Abnormal x-ray compatible with expected atelectasis after hemilaminectomy with decompression of the dura and nerve root at L4 and L5. 2. Syncopal episode, suspect vasovagal. 3. Hypertension. 4. History of tobacco, quit in 1976. Plan . WILL CONTINUE SUPPORT OK TO TRANSFER OR D/C FROM MY STANDPOINT FOLLOW UP IN OFFICE NEEDED 05/27 NOTE 1. Recommend Incentive spirometry. 2. Nebulized treatment p.r.n. 3. Follow Cardiology input. 4. Follow Neurosurgery input. LOLA FLETCHER MD May 28, 2019 08:21
[2019-05-28] MEDS: ATENOLOL 25 MG TABLET. PO SCH (08:29)
[2019-05-28] MEDS: DOCUSATE SODIUM 100 MG CAPSULE. PO SCH (08:29)
[2019-05-28] MEDS: SILDENAFIL CITRATE 20 MG TABLET. PO SCH ×2 (08:29→15:04)
[2019-05-28] MEDS: hydroCHLOROthiazide 25 MG TABLET PO SCH (08:29)
[2019-05-28] MEDS: OMEGA-3 FATTY ACIDS/FISH OIL 1,000 MG CAPSULE. PO SCH (08:29)
[2019-05-28] MEDS: HYDROcodone/APAP 5/325MG 1 TAB TABLET PO PRN (08:32)
[2019-05-28] MEDS ORDERED: BISACODYL 5 MG TABLET.DR. PO SCH (09:00)
[2019-05-28 10:12] VITALS: BP 123/69
[2019-05-28] MEDS ORDERED: MAGNESIUM CITRATE 296 ML SOLUTION. PO PRN (10:15)
[2019-05-28] MEDS ORDERED: TAMSULOSIN 0.4 MG CAP.ER.24H. PO SCH (10:15)
--- NOTE | 2019-05-28 10:28 | PDOC ---
PROGRESS NOTES Subjective Subjective He c/o his back feels like raw meat. He was found with urinary retention and he continues with constipation,last BM on 05/23/2019 and he refused straight cath. Objective Objective Vital Signs Date Time Temp Pulse Resp B/P (MAP) Pulse Ox O2 Delivery O2 Flow Rate FiO2 05/28/19 10:12 97.7 76 18 123/69 (87) 95 Room Air 97.7 Intake and Output 05/28/19 07:00 Intake Total 620 ml Output Total 1050 ml Balance -430 ml Intake Oral 620 ml Output Urine Total 1050 ml # Voids 3 Physical Exam Physical Exam He continues with tenderness to palpation over lumbar paraspinal muscles,sacroiliac joints and trochanteric bursa and painfully limited lumbar spine ROM and SLR test is negative bilaterally and he is walking with roller walker without his left leg feeling like giving out this AM. Assessment Assessment Problems Medical Problems: (1) Post-op pain Status: Acute (2) Syncope Status: Acute Plan Plan of Care To start him on intermittent cath and on flomax to help with urinary retention and to continue physical and occupational therapy and to SNF or home with home health follow up when medically stable. Comment Review of Relevant I have reviewed the following items jens (where applicable) has been applied. Labs Laboratory Tests Test 05/28/19 05:00 White Blood Count 6.7 x10^3/uL (4.0-11.0) Red Blood Count 4.24 x10^6/uL (4.30-5.70) Hemoglobin 13.8 g/dL (13.0-17.5) Hematocrit 39.5 % (39.0-53.0) Mean Corpuscular Volume 93 fL (79-100) Mean Corpuscular Hemoglobin 33 pg (25-35) Mean Corpuscular Hemoglobin Concent 35 g/dL (31-37) Red Cell Distribution Width 14.3 % (11.5-14.5) Platelet Count 163 x10^3/uL (140-400) Neutrophils (%) (Auto) 59 % (31-73) Lymphocytes (%) (Auto) 28 % (24-48) Monocytes (%) (Auto) 11 % (0-9) Eosinophils (%) (Auto) 2 % (0-3) Basophils (%) (Auto) 0 % (0-3) Neutrophils # (Auto) 3.9 x10^3/uL (1.8-7.7) Lymphocytes # (Auto) 1.9 x10^3/uL (1.0-4.8) Monocytes # (Auto) 0.7 x10^3/uL (0.0-1.1) Eosinophils # (Auto) 0.1 x10^3/uL (0.0-0.7) Basophils # (Auto) 0.0 x10^3/uL (0.0-0.2) Sodium Level 141 mmol/L (136-145) Potassium Level 3.3 mmol/L (3.5-5.1) Chloride Level 104 mmol/L (98-107) Carbon Dioxide Level 26 mmol/L (21-32) Anion Gap 11 (6-14) Blood Urea Nitrogen 19 mg/dL (8-26) Creatinine 1.1 mg/dL (0.7-1.3) Estimated GFR (Cockcroft-Gault) 66.0 BUN/Creatinine Ratio 17 (6-20) Glucose Level 124 mg/dL (70-99) Calcium Level 8.8 mg/dL (8.5-10.1) Total Bilirubin 1.4 mg/dL (0.2-1.0) Aspartate Amino Transf (AST/SGOT) 18 U/L (15-37) Alanine Aminotransferase (ALT/SGPT) 16 U/L (16-63) Alkaline Phosphatase 56 U/L (46-116) Total Protein 6.7 g/dL (6.4-8.2) Albumin 3.0 g/dL (3.4-5.0) Albumin/Globulin Ratio 0.8 (1.0-1.7) Laboratory Tests Test 05/28/19 05:00 White Blood Count 6.7 x10^3/uL (4.0-11.0) Red Blood Count 4.24 x10^6/uL (4.30-5.70) Hemoglobin 13.8 g/dL (13.0-17.5) Hematocrit 39.5 % (39.0-53.0) Mean Corpuscular Volume 93 fL (79-100) Mean Corpuscular Hemoglobin 33 pg (25-35) Mean Corpuscular Hemoglobin Concent 35 g/dL (31-37) Red Cell Distribution Width 14.3 % (11.5-14.5) Platelet Count 163 x10^3/uL (140-400) Neutrophils (%) (Auto) 59 % (31-73) Lymphocytes (%) (Auto) 28 % (24-48) Monocytes (%) (Auto) 11 % (0-9) Eosinophils (%) (Auto) 2 % (0-3) Basophils (%) (Auto) 0 % (0-3) Neutrophils # (Auto) 3.9 x10^3/uL (1.8-7.7) Lymphocytes # (Auto) 1.9 x10^3/uL (1.0-4.8) Monocytes # (Auto) 0.7 x10^3/uL (0.0-1.1) Eosinophils # (Auto) 0.1 x10^3/uL (0.0-0.7) Basophils # (Auto) 0.0 x10^3/uL (0.0-0.2) Sodium Level 141 mmol/L (136-145) Potassium Level 3.3 mmol/L (3.5-5.1) Chloride Level 104 mmol/L (98-107) Carbon Dioxide Level 26 mmol/L (21-32) Anion Gap 11 (6-14) Blood Urea Nitrogen 19 mg/dL (8-26) Creatinine 1.1 mg/dL (0.7-1.3) Estimated GFR (Cockcroft-Gault) 66.0 BUN/Creatinine Ratio 17 (6-20) Glucose Level 124 mg/dL (70-99) Calcium Level 8.8 mg/dL (8.5-10.1) Total Bilirubin 1.4 mg/dL (0.2-1.0) Aspartate Amino Transf (AST/SGOT) 18 U/L (15-37) Alanine Aminotransferase (ALT/SGPT) 16 U/L (16-63) Alkaline Phosphatase 56 U/L (46-116) Total Protein 6.7 g/dL (6.4-8.2) Albumin 3.0 g/dL (3.4-5.0) Albumin/Globulin Ratio 0.8 (1.0-1.7) Medications Current Medications Fentanyl Citrate (Fentanyl 2ml Vial) 50 mcg 1X ONCE IVP Last administered on 05/26/19at 09:42; Start 05/26/19 at 09:15; Stop 05/26/19 at 09:23; Status DC Sodium Chloride 1,000 ml @ 1,000 mls/hr 1X ONCE IV Last administered on 05/26/19at 10:49; Start 05/26/19 at 10:45; Stop 05/26/19 at 11:44; Status DC Hydromorphone HCl (Dilaudid) 1 mg 1X ONCE IV Last administered on 05/26/19at 10:48; Start 05/26/19 at 10:45; Stop 05/26/19 at 10:46; Status DC Acetaminophen/ Hydrocodone Bitart (Lortab 5/325) 1 tab PRN Q4HRS PRN PO PAIN Last administered on 05/28/19at 08:32; Start 05/26/19 at 12:30 Fentanyl Citrate (Fentanyl 2ml Vial) 50 mcg 1X ONCE IM ; Start 05/26/19 at 13:45; Stop 05/26/19 at 13:48; Status DC Fentanyl Citrate (Fentanyl 2ml Vial) 50 mcg 1X ONCE IVP Last administered on 05/26/19at 14:00; Start 05/26/19 at 14:00; Stop 05/26/19 at 14:01; Status DC Sodium Chloride 1,000 ml @ 75 mls/hr 1X ONCE IV Last administered on 05/26/19at 16:09; Start 05/26/19 at 15:15; Stop 05/27/19 at 04:34; Status DC Iohexol (Omnipaque 350 Mg/ml) 90 ml 1X ONCE IV Last administered on 05/26/19at 15:15; Start 05/26/19 at 15:15; Stop 05/26/19 at 15:16; Status DC Info (CONTRAST GIVEN -- Rx MONITORING) 1 each PRN DAILY PRN MC SEE COMMENTS; Start 05/26/19 at 15:15; Stop 05/28/19 at 15:14 Morphine Sulfate (Morphine Sulfate) 2 mg 1X ONCE IM ; Start 05/26/19 at 16:15; Stop 05/26/19 at 16:16; Status UNV Morphine Sulfate (Morphine Sulfate) 2 mg PRN Q2HR PRN IV PAIN Last administered on 05/28/19at 06:14; Start 05/26/19 at 16:15 Atenolol (Tenormin) 25 mg DAILY PO Last administered on 05/28/19at 08:29; Start 05/27/19 at 09:00 Atorvastatin Calcium (Lipitor) 40 mg QHS PO Last administered on 05/27/19 20:17; Start 05/26/19 at 21:00 Docusate Sodium (Colace) 100 mg BID PO Last administered on 05/28/19 08:29; Start 05/26/19 at 21:00 Hydrochlorothiazide (Hydrodiuril) 25 mg DAILY PO Last administered on 05/28/19 08:29; Start 05/27/19 at 09:00 Methocarbamol (Robaxin) 750 mg TID PRN PRN PO MUSCLE SPASMS Last administered on 05/27/19 14:32; Start 05/26/19 at 19:15 Sildenafil Citrate (Revatio) 20 mg TID PO Last administered on 05/28/19 08:29; Start 05/26/19 at 21:00 Naproxen (Naprosyn) 250 mg BIDWMEALS PO ; Start 05/27/19 at 08:00; Stop 05/27/19 at 13:50; Status DC Fish Oil (Fish Oil) 1,000 mg DAILY PO Last administered on 05/28/19 08:29; Start 05/27/19 at 09:00 Pantoprazole Sodium (Protonix) 40 mg DAILYAC PO Last administered on 05/28/19 07:41; Start 05/27/19 at 07:30 Aspirin (Ecotrin) 81 mg DAILYWBKFT PO Last administered on 05/28/19 08:28; Start 05/28/19 at 08:00 Bisacodyl (Dulcolax Tab) 10 mg DAILY PO Last administered on 05/28/19 08:28; Start 05/28/19 at 09:00 Bisacodyl (Dulcolax Supp) 10 mg PRN DAILY PRN [place] CONSTIPATION; Start 05/27/19 at 13:45 Magnesium Hydroxide (Milk Of Magnesia) 2,400 mg PRN DAILY PRN PO CONSTIPATION Last administered on 05/28/19 07:41; Start 05/27/19 at 13:45 Albuterol Sulfate (Ventolin Neb Soln) 2.5 mg PRN Q2HR PRN NEB DYSPNEA; Start 05/27/19 at 15:15 Tamsulosin HCl (Flomax) 0.4 mg QHS PO ; Start 05/28/19 at 10:15 Ascorbic Acid (Vitamin C) 500 mg BID PO ; Start 05/28/19 at 11:00 Magnesium Citrate (Citroma) 296 ml PRN 1X PRN PO CONSTIPATION; Start 05/28/19 at 10:15 Active Scripts Active Robaxin-750 (Methocarbamol) 750 Mg Tablet 750 Mg PO TID PRN PRN Colace (Docusate Sodium) 100 Mg Capsule 100 Mg PO BID [place] 5-325 Tablet (Acetaminophen/Hydrocodone Bitart) 1 Each Tablet 1-2 Tab PO Q4-6HRS PRN Reported Atorvastatin Calcium 40 Mg Tablet 1 Tab PO QHS Aleve (Naproxen Sodium) 220 Mg Tablet 220 Mg PO BID Prilosec Otc (Omeprazole Magnesium) 20 Mg Tablet. 20 Mg PO DAILY Atenolol 25 Mg Tablet 25 Mg PO DAILY Sildenafil (Sildenafil Citrate) 20 Mg Tablet 20 Mg PO TID Lotus 3 Fish Oil Softgel (Lotus-3 Fatty Acids/Fish Oil) 1 Each Capsule. 1 Each PO DAILY Hydrochlorothiazide Tablet (Hydrochlorothiazide) 25 Mg Tablet 25 Mg PO DAILY Vitals/I & O Vital Sign - Last 24 Hours 05/27/19 05/27/19 05/27/19 05/27/19 11:07 12:06 12:36 13:48 Temp 97.9 97.9 Pulse 82 82 Resp 18 B/P (MAP) 132/68 (89) 132/68 Pulse Ox 98 98 98 O2 Delivery Room Air Room Air Room Air 05/27/19 05/27/19 05/27/19 05/27/19 15:00 15:36 15:55 16:00 Temp 97.9 97.9 Pulse 90 87 91 Resp 18 B/P (MAP) 134/59 (84) 131/60 (83) 107/63 (78) Pulse Ox 96 96 O2 Delivery Room Air Room Air 05/27/19 05/27/19 05/27/19 05/27/19 16:10 17:25 18:25 19:03 Temp 98.0 98.0 Pulse 86 84 Resp 18 B/P (MAP) 73/48 (56) 112/60 (77) Pulse Ox 96 96 97 O2 Delivery Room Air Room Air Room Air 05/27/19 05/27/19 05/27/19 05/27/19 20:00 20:17 20:17 22:22 Temp 97.4 97.4 Pulse 84 86 Resp 18 B/P (MAP) 112/60 153/75 (101) Pulse Ox 98 O2 Delivery Room Air Room Air Room Air 05/27/19 05/27/19 05/28/19 05/28/19 22:23 22:24 02:08 03:21 Temp 97.9 97.9 Pulse 84 Resp 24 16 20 B/P (MAP) 107/60 (76) Pulse Ox 97 O2 Delivery Room Air Room Air Room Air Room Air 05/28/19 05/28/19 05/28/19 05/28/19 06:14 06:44 06:51 08:00 Temp 98.8 98.8 Pulse 80 Resp 24 16 18 B/P (MAP) 131/71 (91) Pulse Ox 94 O2 Delivery Room Air Room Air Room Air Room Air 05/28/19 05/28/19 05/28/19 05/28/19 08:29 08:29 08:32 09:32 Pulse 80 80 Resp 16 16 B/P (MAP) 131/71 131/71 O2 Delivery Room Air Room Air 05/28/19 10:12 Temp 97.7 97.7 Pulse 76 Resp 18 B/P (MAP) 123/69 (87) Pulse Ox 95 O2 Delivery Room Air Intake and Output 05/27/19 05/27/19 05/28/19 15:00 23:00 07:00 Intake Total 120 ml 500 ml Output Total 750 ml 300 ml Balance 120 ml -750 ml 200 ml EJ GUALLPA MD May 28, 2019 10:28
[2019-05-28] MEDS ORDERED: ASCORBIC ACID 500 MG TABLET PO SCH (11:00)
[2019-05-28 11:12] LABS: BILIRUBIN,URINE NEGATIVE (NEG); CLARITY,URINE CLOUDY; COLOR,URINE YELLOW; NITRITE,URINE NEGATIVE (NEG); PROTEIN,URINE NEGATIVE (NEG-TRACE)
[2019-05-28 11:21] LABS: BACTERIA,URINE FEW /HPF (0-FEW); RBC,URINE RARE /HPF (0-2); SQUAMOUS EPITHELIAL CELL,UR FEW /LPF; WBC,URINE 0 /HPF (0-4)
--- NOTE | 2019-05-28 11:40 | NUR ---
Bladder scanned patient per Dr. Patel, Scan showed about 600 cc's, patient attempted to void and was unsuccessful. Patient agreed to be straight cathed, 650 cc's of clear yellow urine drained. Patient made aware that we would check his bladder again later this afternoon and repeat process if needed. Will continue to monitor.
--- NOTE | 2019-05-28 12:46 | NUR ---
SS following up with discharge planning. SS met with pt to discuss inpatient rehabilitation. Pt continues to decline inpatient rehabilitation. Pt requested education on home healthcare and outpatient PT/OT. SS provided requested information. Pt reported that he would prefer outpatient PT/OT at [facility], ; fax [phone]. Pt reported that he does not plan to be homebound. Pt also requested roller walker. SS phoned and faxed script and order for roller walker to [facility], ; fax [phone]. SS phoned and faxed script and referral to [facility] outpatient therapy. Pt's RN notified.
--- NOTE | 2019-05-28 13:27 | NUR ---
SS following up with discharge planning. SS received phone contact from [employer], , stating that walker has been approved by insurance. [facility] reported that walker would be delivered to pt's room or if discharged prior to that time would be delivered to pt's home. Pt notified. SS will continue to follow for discharge planning.
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
[2019-05-28] MEDS ORDERED: POTASSIUM CHLORIDE 20 MEQ TABLET.ER. PO ONE (13:45)
--- NOTE | 2019-05-28 14:26 | PDOC ---
PROGRESS NOTES Subjective Subjective POD #4 s/p lumbar decompression L4-5 resting in bed, reading newspaper no significant leg pain, c/o back pain with activity but it is improving had difficulty voiding and required straight cath, hasn't voided since c/o constipation Objective Objective Vital Signs Date Time Temp Pulse Resp B/P (MAP) Pulse Ox O2 Delivery O2 Flow Rate FiO2 05/28/19 11:53 16 Room Air 05/28/19 10:12 97.7 76 123/69 (87) 95 97.7 Intake and Output 05/28/19 07:00 Intake Total 620 ml Output Total 1050 ml Balance -430 ml Intake Oral 620 ml Output Urine Total 1050 ml # Voids 3 Physical Exam General: Alert, Oriented X3, Cooperative, No acute distress MUSCULOSKELETAL: Other (NAIR) Neuro: Normal speech Skin: Other (Dressing C,D I, flat) Assessment Assessment Problems Medical Problems: (1) Post-op pain Status: Acute (2) Syncope Status: Acute Plan Plan of Care ok to dc from NS standpoint once he is able to void will follow Comment Review of Relevant I have reviewed the following items jens (where applicable) has been applied. Labs Laboratory Tests Test 05/28/19 05:00 05/28/19 10:50 White Blood Count 6.7 x10^3/uL (4.0-11.0) Red Blood Count 4.24 x10^6/uL (4.30-5.70) Hemoglobin 13.8 g/dL (13.0-17.5) Hematocrit 39.5 % (39.0-53.0) Mean Corpuscular Volume 93 fL (79-100) Mean Corpuscular Hemoglobin 33 pg (25-35) Mean Corpuscular Hemoglobin Concent 35 g/dL (31-37) Red Cell Distribution Width 14.3 % (11.5-14.5) Platelet Count 163 x10^3/uL (140-400) Neutrophils (%) (Auto) 59 % (31-73) Lymphocytes (%) (Auto) 28 % (24-48) Monocytes (%) (Auto) 11 % (0-9) Eosinophils (%) (Auto) 2 % (0-3) Basophils (%) (Auto) 0 % (0-3) Neutrophils # (Auto) 3.9 x10^3/uL (1.8-7.7) Lymphocytes # (Auto) 1.9 x10^3/uL (1.0-4.8) Monocytes # (Auto) 0.7 x10^3/uL (0.0-1.1) Eosinophils # (Auto) 0.1 x10^3/uL (0.0-0.7) Basophils # (Auto) 0.0 x10^3/uL (0.0-0.2) Sodium Level 141 mmol/L (136-145) Potassium Level 3.3 mmol/L (3.5-5.1) Chloride Level 104 mmol/L (98-107) Carbon Dioxide Level 26 mmol/L (21-32) Anion Gap 11 (6-14) Blood Urea Nitrogen 19 mg/dL (8-26) Creatinine 1.1 mg/dL (0.7-1.3) Estimated GFR (Cockcroft-Gault) 66.0 BUN/Creatinine Ratio 17 (6-20) Glucose Level 124 mg/dL (70-99) Calcium Level 8.8 mg/dL (8.5-10.1) Total Bilirubin 1.4 mg/dL (0.2-1.0) Aspartate Amino Transf (AST/SGOT) 18 U/L (15-37) Alanine Aminotransferase (ALT/SGPT) 16 U/L (16-63) Alkaline Phosphatase 56 U/L (46-116) Total Protein 6.7 g/dL (6.4-8.2) Albumin 3.0 g/dL (3.4-5.0) Albumin/Globulin Ratio 0.8 (1.0-1.7) Urine Collection Type Unknown Urine Color Yellow Urine Clarity Cloudy Urine pH 7.0 Urine Specific [place] 1.015 Urine Protein Negative mg/dL (NEG-TRACE) Urine Glucose (UA) Negative mg/dL (NEG) Urine Ketones (Stick) Negative mg/dL (NEG) Urine Blood Negative (NEG) Urine Nitrite Negative (NEG) Urine Bilirubin Negative (NEG) Urine Urobilinogen Dipstick 1.0 mg/dL (0.2 mg/dL) Urine Leukocyte Esterase Negative (NEG) Urine RBC Rare /HPF (0-2) Urine WBC 0 /HPF (0-4) Urine Squamous Epithelial Cells Few /LPF Urine Bacteria Few /HPF (0-FEW) Laboratory Tests Test 05/28/19 05:00 05/28/19 10:50 White Blood Count 6.7 x10^3/uL (4.0-11.0) Red Blood Count 4.24 x10^6/uL (4.30-5.70) Hemoglobin 13.8 g/dL (13.0-17.5) Hematocrit 39.5 % (39.0-53.0) Mean Corpuscular Volume 93 fL (79-100) Mean Corpuscular Hemoglobin 33 pg (25-35) Mean Corpuscular Hemoglobin Concent 35 g/dL (31-37) Red Cell Distribution Width 14.3 % (11.5-14.5) Platelet Count 163 x10^3/uL (140-400) Neutrophils (%) (Auto) 59 % (31-73) Lymphocytes (%) (Auto) 28 % (24-48) Monocytes (%) (Auto) 11 % (0-9) Eosinophils (%) (Auto) 2 % (0-3) Basophils (%) (Auto) 0 % (0-3) Neutrophils # (Auto) 3.9 x10^3/uL (1.8-7.7) Lymphocytes # (Auto) 1.9 x10^3/uL (1.0-4.8) Monocytes # (Auto) 0.7 x10^3/uL (0.0-1.1) Eosinophils # (Auto) 0.1 x10^3/uL (0.0-0.7) Basophils # (Auto) 0.0 x10^3/uL (0.0-0.2) Sodium Level 141 mmol/L (136-145) Potassium Level 3.3 mmol/L (3.5-5.1) Chloride Level 104 mmol/L (98-107) Carbon Dioxide Level 26 mmol/L (21-32) Anion Gap 11 (6-14) Blood Urea Nitrogen 19 mg/dL (8-26) Creatinine 1.1 mg/dL (0.7-1.3) Estimated GFR (Cockcroft-Gault) 66.0 BUN/Creatinine Ratio 17 (6-20) Glucose Level 124 mg/dL (70-99) Calcium Level 8.8 mg/dL (8.5-10.1) Total Bilirubin 1.4 mg/dL (0.2-1.0) Aspartate Amino Transf (AST/SGOT) 18 U/L (15-37) Alanine Aminotransferase (ALT/SGPT) 16 U/L (16-63) Alkaline Phosphatase 56 U/L (46-116) Total Protein 6.7 g/dL (6.4-8.2) Albumin 3.0 g/dL (3.4-5.0) Albumin/Globulin Ratio 0.8 (1.0-1.7) Urine Collection Type Unknown Urine Color Yellow Urine Clarity Cloudy Urine pH 7.0 Urine Specific [place] 1.015 Urine Protein Negative mg/dL (NEG-TRACE) Urine Glucose (UA) Negative mg/dL (NEG) Urine Ketones (Stick) Negative mg/dL (NEG) Urine Blood Negative (NEG) Urine Nitrite Negative (NEG) Urine Bilirubin Negative (NEG) Urine Urobilinogen Dipstick 1.0 mg/dL (0.2 mg/dL) Urine Leukocyte Esterase Negative (NEG) Urine RBC Rare /HPF (0-2) Urine WBC 0 /HPF (0-4) Urine Squamous Epithelial Cells Few /LPF Urine Bacteria Few /HPF (0-FEW) Medications Current Medications Fentanyl Citrate (Fentanyl 2ml Vial) 50 mcg 1X ONCE IVP Last administered on 05/26/19at 09:42; Start 05/26/19 at 09:15; Stop 05/26/19 at 09:23; Status DC Sodium Chloride 1,000 ml @ 1,000 mls/hr 1X ONCE IV Last administered on 05/26/19at 10:49; Start 05/26/19 at 10:45; Stop 05/26/19 at 11:44; Status DC Hydromorphone HCl (Dilaudid) 1 mg 1X ONCE IV Last administered on 05/26/19at 10:48; Start 05/26/19 at 10:45; Stop 05/26/19 at 10:46; Status DC Acetaminophen/ Hydrocodone Bitart (Lortab 5/325) 1 tab PRN Q4HRS PRN PO PAIN Last administered on 05/28/19at 08:32; Start 05/26/19 at 12:30 Fentanyl Citrate (Fentanyl 2ml Vial) 50 mcg 1X ONCE IM ; Start 05/26/19 at 13:45; Stop 05/26/19 at 13:48; Status DC Fentanyl Citrate (Fentanyl 2ml Vial) 50 mcg 1X ONCE IVP Last administered on 05/26/19at 14:00; Start 05/26/19 at 14:00; Stop 05/26/19 at 14:01; Status DC Sodium Chloride 1,000 ml @ 75 mls/hr 1X ONCE IV Last administered on 05/26/19 at 16:09; Start 05/26/19 at 15:15; Stop 05/27/19 at 04:34; Status DC Iohexol (Omnipaque 350 Mg/ml) 90 ml 1X ONCE IV Last administered on 05/26/19at 15:15; Start 05/26/19 at 15:15; Stop 05/26/19 at 15:16; Status DC Info (CONTRAST GIVEN -- Rx MONITORING) 1 each PRN DAILY PRN MC SEE COMMENTS; Start 05/26/19 at 15:15; Stop 05/28/19 at 15:14 Morphine Sulfate (Morphine Sulfate) 2 mg 1X ONCE IM ; Start 05/26/19 at 16:15; Stop 05/26/19 at 16:16; Status UNV Morphine Sulfate (Morphine Sulfate) 2 mg PRN Q2HR PRN IV PAIN Last administered on 05/28/19 11:23; Start 05/26/19 at 16:15 Atenolol (Tenormin) 25 mg DAILY PO Last administered on 05/28/19 08:29; Start 05/27/19 at 09:00 Atorvastatin Calcium (Lipitor) 40 mg QHS PO Last administered on 05/27/19 20:17; Start 05/26/19 at 21:00 Docusate Sodium (Colace) 100 mg BID PO Last administered on 05/28/19 08:29; Start 05/26/19 at 21:00 Hydrochlorothiazide (Hydrodiuril) 25 mg DAILY PO Last administered on 05/28/19 08:29; Start 05/27/19 at 09:00 Methocarbamol (Robaxin) 750 mg TID PRN PRN PO MUSCLE SPASMS Last administered on 05/27/19 14:32; Start 05/26/19 at 19:15 Sildenafil Citrate (Revatio) 20 mg TID PO Last administered on 05/28/19 08:29; Start 05/26/19 at 21:00 Naproxen (Naprosyn) 250 mg BIDWMEALS PO ; Start 05/27/19 at 08:00; Stop 05/27/19 at 13:50; Status DC Fish Oil (Fish Oil) 1,000 mg DAILY PO Last administered on 05/28/19 08:29; Start 05/27/19 at 09:00 Pantoprazole Sodium (Protonix) 40 mg DAILYAC PO Last administered on 05/28/19 07:41; Start 05/27/19 at 07:30 Aspirin (Ecotrin) 81 mg DAILYWBKFT PO Last administered on 05/28/19 08:28; Start 05/28/19 at 08:00 Bisacodyl (Dulcolax Tab) 10 mg DAILY PO Last administered on 05/28/19 08:28; Start 05/28/19 at 09:00 Bisacodyl (Dulcolax Supp) 10 mg PRN DAILY PRN [place] CONSTIPATION; Start 05/27/19 at 13:45 Magnesium Hydroxide (Milk Of Magnesia) 2,400 mg PRN DAILY PRN PO CONSTIPATION Last administered on 05/28/19 07:41; Start 05/27/19 at 13:45 Albuterol Sulfate (Ventolin Neb Soln) 2.5 mg PRN Q2HR PRN NEB DYSPNEA; Start 05/27/19 at 15:15 Tamsulosin HCl (Flomax) 0.4 mg QHS PO Last administered on 05/28/19 10:32; Start 05/28/19 at 10:15 Ascorbic Acid (Vitamin C) 500 mg BID PO Last administered on 05/28/19 10:32; Start 05/28/19 at 11:00 Magnesium Citrate (Citroma) 296 ml PRN 1X PRN PO CONSTIPATION Last administered on 05/28/19at 10:32; Start 05/28/19 at 10:15 Potassium Chloride (Klor-Con) 40 meq DAILYWBKFT PO ; Start 05/29/19 at 08:00 Potassium Chloride (Klor-Con) 40 meq 1X ONCE PO ; Start 05/28/19 at 13:45; Sto p 05/28/19 at 13:46; Status DC Active Scripts Active Robaxin-750 (Methocarbamol) 750 Mg Tablet 750 Mg PO TID PRN PRN Colace (Docusate Sodium) 100 Mg Capsule 100 Mg PO BID [place] 5-325 Tablet (Acetaminophen/Hydrocodone Bitart) 1 Each Tablet 1-2 Tab PO Q4-6HRS PRN Reported Atorvastatin Calcium 40 Mg Tablet 1 Tab PO QHS Aleve (Naproxen Sodium) 220 Mg Tablet 220 Mg PO BID Prilosec Otc (Omeprazole Magnesium) 20 Mg Tablet. 20 Mg PO DAILY Atenolol 25 Mg Tablet 25 Mg PO DAILY Sildenafil (Sildenafil Citrate) 20 Mg Tablet 20 Mg PO TID Platter 3 Fish Oil Softgel (Platter-3 Fatty Acids/Fish Oil) 1 Each Capsule.dr 1 Each PO DAILY Hydrochlorothiazide Tablet (Hydrochlorothiazide) 25 Mg Tablet 25 Mg PO DAILY Vitals/I & O Vital Sign - Last 24 Hours 05/27/19 05/27/19 05/27/19 05/27/19 15:00 15:36 15:55 16:00 Temp 97.9 97.9 Pulse 90 87 91 Resp 18 B/P (MAP) 134/59 (84) 131/60 (83) 107/63 (78) Pulse Ox 96 96 O2 Delivery Room Air Room Air 05/27/19 05/27/19 05/27/19 05/27/19 16:10 17:25 18:25 19:03 Temp 98.0 98.0 Pulse 86 84 Resp 18 B/P (MAP) 73/48 (56) 112/60 (77) Pulse Ox 96 96 97 O2 Delivery Room Air Room Air Room Air 05/27/19 05/27/19 05/27/19 05/27/19 20:00 20:17 20:17 22:22 Temp 97.4 97.4 Pulse 84 86 Resp 18 B/P (MAP) 112/60 153/75 (101) Pulse Ox 98 O2 Delivery Room Air Room Air Room Air 05/27/19 05/27/19 05/28/19 05/28/19 22:23 22:24 02:08 03:21 Temp 97.9 97.9 Pulse 84 Resp 24 16 20 B/P (MAP) 107/60 (76) Pulse Ox 97 O2 Delivery Room Air Room Air Room Air Room Air 05/28/19 05/28/19 05/28/19 05/28/19 06:14 06:44 06:51 08:00 Temp 98.8 98.8 Pulse 80 Resp 24 16 18 B/P (MAP) 131/71 (91) Pulse Ox 94 O2 Delivery Room Air Room Air Room Air Room Air 05/28/19 05/28/19 05/28/19 05/28/19 08:29 08:29 08:32 09:32 Pulse 80 80 Resp 16 16 B/P (MAP) 131/71 131/71 O2 Delivery Room Air Room Air 05/28/19 05/28/19 05/28/19 10:12 11:23 11:53 Temp 97.7 97.7 Pulse 76 Resp 18 16 16 B/P (MAP) 123/69 (87) Pulse Ox 95 O2 Delivery Room Air Room Air Room Air Intake and Output 05/27/19 05/27/19 05/28/19 15:00 23:00 07:00 Intake Total 120 ml 500 ml Output Total 750 ml 300 ml Balance 120 ml -750 ml 200 ml [employer]EV[employer] May 28, 2019 14:26
[2019-05-28 14:49] VITALS: BP 140/67
[2019-05-28] MEDS ORDERED: HYDROcodone/APAP 10/325 1 TAB TABLET PO PRN (15:00)
[2019-05-28 15:04] VITALS: BP 140/67
--- NOTE | 2019-05-28 15:16 | CONS ---
DATE OF CONSULTATION: 05/27/2019 LOCATION: He is in room 248. ATTENDING PHYSICIAN: Dr. Fallon. REASON FOR CONSULTATION: The patient was seen at the request of Dr. Fallon for rehab evaluation. HISTORY OF PRESENT ILLNESS: This is a 69-year-old right-handed male with chronic lower back pain for which he had lumbar decompression laminectomy for treatment of lumbar spinal stenosis with left lumbar radiculitis with associated neurogenic claudication. The patient was discharged to home. He had surgery done on 05/24/2019, went home on 05/25/2019, admitted back on 05/26/2019 after he had a syncopal episode and he felt his left leg is giving out while up. The patient had CT scan of lumbar spine and CT angiography of abdomen and pelvis with intravenous contrast done on 05/26/2019, which revealed aortic and aortic branch vessel atherosclerosis without any evidence of dissection or aneurysm, small fat containing umbilical hernia is stranding within the herniated fat and ventral peritoneal fat suggesting a component of fat ischemia. Findings consistent with left hemilaminectomy surgery at L4-L5 with foci of gas within the posterior back and within the laminectomy, decompression space and central canal at the lower lumbar levels related to recent surgery. Persistent foraminal and central canal stenosis at the aforementioned levels at L3-L4, L2-L3,, L4-L5 and L5-S1; colonic diverticulosis; hepatic steatosis and small hepatic cyst; renal cortical scarring; tiny hiatal hernia. The patient had a CT scan of the brain, which failed to reveal any acute abnormality. It revealed chronic small vessel ischemic disease and mild cerebral and cerebellar volume loss. The patient lives alone in [facility], had few steps to manage. He had family history of diabetes mellitus. The patient is eager to go home as he is worried about his home as he does not live in a good neighborhood. PHYSICAL EXAMINATION: On physical examination today revealed a middle-aged male. He is alert, oriented to time, place, person and circumstance and follows commands appropriately, moves all 4 extremities voluntarily where he had 4+/5 grade muscle strength. Deep tendon reflexes are 1-2+ and symmetrical in upper extremities, absent at left knee and both ankles. He had equal perception of touch and pinprick sensation bilaterally. He had painful limited movements of his lumbar spine and tenderness to palpation over lumbar paraspinal muscles extending over to sacroiliac joint area and to some extent over trochanteric bursa. Straight leg raising test is negative bilaterally. He is getting up with supervision. Once up, he felt like his left leg is about to give up. The patient had dressing to his lumbar spine area. He had painful limited movements of his lumbar spine. He had painful range of motion of both hip joints. I have asked the nurses to check post-voiding urine residual, it was about 600 yesterday and 750 today as he refused straight cath yesterday, but after I explained to him about the need for him to have the bladder emptied to avoid any urinary tract infection, he agreed. ASSESSMENT: The patient with postop lumbar decompression laminectomy for treatment of lumbar spinal stenosis with left lumbar radiculitis and neurogenic claudication. The patient also with neurogenic bladder and bowel. RECOMMENDATIONS: Agree with the plan for physical therapy and occupational therapy. He might need to go to [facility] for a short period to help with his mobility and self-care limitations, also to start him on Flomax and intermittent straight cath and to teach him how to do self-straight catheterization, to start him on vitamin C to acidify the urine, to start him on Flomax. Dr. Fallon, I appreciate asking me to participate in the care of this interesting patient. I will be glad to see him for followup with you on as needed basis. EJ GUALLPA MD DR: EMMA/dunia JOB#: [id number] / [id number]
[2019-05-28] MEDS ORDERED: HYDR-2769 PO (17:45)
[2019-05-28] MEDS ORDERED: TAMS0.4C97 PO (17:45)
--- NOTE | 2019-05-28 18:04 | NUR ---
Discharge instructions reviewed with patient, all prescriptions and follow ups given. Patient advised to be checked for post void residual, patient states that he will not allow to be straight cath regardless of what bladder scanner shows, Patient educated about risks of not emptying bladder, patient verbalizes understanding but does not want to be checked or catherized, Dr. Fallon aware, patient will be discharging home with outpatient rehab.
[2019-05-29] MEDS ORDERED: POTASSIUM CHLORIDE 20 MEQ TABLET.ER. PO SCH (08:00)
== END 2019-05-28 19:35 | disposition home or self-care (01) | DRG 74 ==
LOC: ER 08:53 → 2 SOUTH 10:59
PROVIDERS: ADMIT Internal Medicine; ATTEND Internal Medicine
DX: G90.8 Other disorders of autonomic nervous system (principal); J98.11 Atelectasis; E78.5 Hyperlipidemia, unspecified; E87.6 Hypokalemia; G89.29 Other chronic pain; I10 Essential (primary) hypertension; K57.30 Diverticulosis of large intestine without perforation or abscess without bleeding; K59.00 Constipation, unspecified; N31.9 Neuromuscular dysfunction of bladder, unspecified; Z82.49 Family history of ischemic heart disease and other diseases of the circulatory system; Z83.3 Family history of diabetes mellitus; Z87.891 Personal history of nicotine dependence; M19.90 Unspecified osteoarthritis, unspecified site; W18.39XA Other fall on same level, initial encounter; Y93.89 Activity, other specified; Y92.89 Other specified places as the place of occurrence of the external cause; Y99.8 Other external cause status
CPT/HCPCS: 36415; 70450; 71045; 74174; 76000; 80053; 81001; 82550; 83735; 84443; 84484; 85025; 87086; 88304; 88311; 93005; 93306; 96361; 96374; 96375; G0238; J1170; J2270; J3010; J7030; Q9967; 97116; 97530; 99285-25; G0378